=== PATIENT | female | born 1965 | race Caucasian/White ===

== ENCOUNTER 2018-10-29 14:02 | Inpatient (IN) | payer OTHER, SELFPAY ==
[2018-10-29 14:02] VITALS: BP 170/99; PULSE 91; RESP 16; TEMP 37.2; O2SAT 98; BMI 26.5
--- NOTE | 2018-10-29 14:26 | CT_ITS ---
STUDY: CT ABDOMEN AND PELVIS WITH CONTRAST REASON FOR EXAM: Female, 53 years old. Abdominal pain, diarrhea RADIATION DOSAGE (If Supplied By Facility): CTDIvol = ( 11.97 ) mGy, DLP = ( 789.98 ) mGycm TECHNIQUE: Transaxial images were obtained from the dome of the diaphragm to the symphysis pubis with oral contrast. 100 mL Omnipaque 300 was administered. Sagittal and coronal images were reconstructed. Individualized dose optimization techniques were used for this CT. COMPARISON: None. FINDINGS: There is atelectasis in the lung bases. The visualized portions of the heart are within normal limits. Mild periportal edema likely related to hydration status. There is small hepatic cysts but no solid hepatic masses. Normal gallbladder and extrahepatic biliary system. Normal spleen. Normal pancreas. Normal bilateral adrenal glands. Normal right kidney. Normal left kidney. Normal visualized stomach. Normal small intestine. There is significant (1.4 cm thickness) wall thickening involving the terminal ileum, ileocecal valve and ascending colon (with edematous submucosa) extending just beyond the hepatic flexure. Pericolonic stranding and fluid extending along the right colon and in the paracolic gutter into the hepatorenal recess and adjacent to the liver. No pneumoperitoneum. The remainder of the colon is unremarkable and nondistended. There are diverticular changes of the left colon. There is non-visualization of the appendix. There is diffuse atherosclerotic calcification of the abdominal aorta, without a demonstrated aneurysm. Normal inferior vena cava. Normal retroperitoneum. Normal urinary bladder. Normal visualized uterus. Mild amount of free fluid in the dependent portion of pelvis. Normal abdominal wall. There are diffuse degenerative changes of the visualized lumbar spine. CT/Abdomen/Pelvis WITH Contrast IMPRESSION: 1. Terminal ileum and right colon wall thickening with pericolonic stranding and mild intra-abdominal fluid. Most likely represents infectious (Yersinia, salmonella could most common in this distribution) ileocolitis. Inflammatory bowel disease, ischemic colitis and neoplasm considered less likely. Electronically Signed: Chris Pérez MD at 17:07 EST , Service support ,
--- NOTE | 2018-10-29 14:29 | ED.DCSUM_ITS ---
- ER Visit Summary Date of Service: 10/29/18 Chief Complaint: Abdominal pain, diarrhea History of Present Illness: The patient is a 53 F presenting with abdominal pain, diarrhea. Patient is a started last night. She has had several episodes of diarrhea. She has noted blood in her stool. She denies sick contacts. No recent antibiotics or recent travel. No history of bad food exposure. She has nausea with no vomiting. She denies fever. History of previous appendectomy. Physical Examination: Vitals are stable. Patient is afebrile. Alert no acute distress. HEENT exam is unremarkable. Neck is supple. Lungs are clear and equal bilaterally. Heart is regular rate and rhythm. Abdomen is soft right lower quadrant tenderness with no rebound or guarding Extremities are unremarkable. Skin is warm and dry. No focal neurologic deficit. Remainder of exam is unremarkable. Emergency Department Course and Treatment: Patient given IV fluids, Zofran, morphine. She continues to have nausea and was given Phenergan IV. CBC showed white count 12.3, hemoglobin 14.4. Chemistry unremarkable. Liver lipase are normal. Urinalysis unremarkable other than trace ketones. CT abdomen pelvis shows terminal ileum and right colon wall thickening with pericolonic stranding and mild intra-abdominal fluid. Most likely represents infectious (Yersinia, salmonella could most common in this distribution) ileocolitis. Inflammatory bowel disease, ischemic colitis and neoplasm considered less likely. Stool guaiac positive. Patient continues to have abdominal pain, nausea. Discussed with the hospitalist for admission. Disposition: Admission Impression: Ileocolitis This note was generated with [employer] dictation software. It may contain incorrect words, spelling, and punctuation that were not noted in review of the chart prior to signing ED Disposition - Plan for ED Patient: Referrals: Care Physician,No Primary [Primary Care Provider] -
[2018-10-29] MEDS: 0.9% Normal Saline 1,000 ML 1000 ML IV (14:47)
[2018-10-29] MEDS: Ondansetron 4 MG/2 ML Vial IV (14:48)
[2018-10-29 14:49] LABS: Bacteria 0 SEEN /hpf (None Seen); Mucous, Urine 0 SEEN /hpf (<or=2+); Red Blood Cells-Urine 0 SEEN /hpf (0-5)
[2018-10-29 14:53] LABS: Absolute Lymphocyte Count 1.14 X10^3/ul (0.83-4.51); Absolute Neutrophil Count 10.4 X10^3/uL (2.0-7.7); Basophil# 0.03 X10^3/uL; Basophil% 0.2 % (0-1); Eosinophil# 0.05 X10^3/uL; Eosinophils% 0.4 % (0-5); Hematocrit 41.4 % (37-47); Hemoglobin 14.4 g/dl (12.0-15.0); Lymphocyte # 1.14 X10^3/ul (4.0); Lymphocyte % 9.3 % (19-41); Mean Corp Hgb Conc 34.8 g/gl (32-36); Mean Corpuscular Hgb 33.6 pg (27.0-32.0); Mean Corpuscular Volume 96.7 fL (81-99); Mean Platelet Vol. 9.8 fl (6.2-12.0); Monocyte# 0.63 X10^3/uL; Monocyte% 5.1 % (0-10); Neutrophil # 10.43 X10^3/uL (2.7-7.7); Neutrophil % 84.9 % (47-70); Platelet Count 203 K/mm3 (150-450); RBC Distribution Width SD 44.8 fl (35.1-43.9); Red Blood Count 4.28 M/mm3 (4.2-5.4); White Blood Count 12.3 K/mm3 (4.4-11.0)
[2018-10-29 14:54] LABS: POSITIVE COUNT NO; POSITIVE DIFFERENTIAL NO; POSITIVE MORPHOLOGY NO
[2018-10-29 14:59] LABS: Color, Urine Yellow (Yellow); Glucose, Dipstick Normal (Normal); Ketone-Dipstick 50 mg/dl (Negative); Leukocyte Esterase-Dipstick Negative /ul (Negative); Nitrite-Dipstick Negative (Negative); Occult Blood-Urine Negative /ul (Negative); Protein-Dipstick Negative (Negative); Urine Bilirubin Dipstick Negative (Negative); Urine Clarity Clear (Clear); Urine Urobilinogen Normal (Normal)
[2018-10-29 15:04] LABS: Squamous Epithelial Cells - UA 0-5 SEEN /hpf (5-10); White Blood Cells 0-5 SEEN /hpf (0-5)
[2018-10-29 15:20] LABS: ALB/GLOB Ratio 0.8 RATIO (0.9-2.4); AST(SGOT) 19 U/L (15-37); Alanine Aminotransfer ALT/SGPT 12 U/L (13-56); Albumin, Serum 3.1 g/dL (3.2-5.0); Alkaline Phosphatase 64 U/L (45-117); Anion Gap 5 (5-15); BUN 9 mg/dL (7-18); BUN/Creat Ratio 11.6 RATIO (10-20); Calcium,Total 8.3 mg/dL (8.5-10.1); Chloride 112 mmol/L (98-107); Creatinine, Serum 0.77 mg/dL (0.55-1.02); EST Glomerular Filtration Rate 83 mL/min (>60); Est Glom Filt Rate - Afr Amer 100 mL/min (>60); Globulin 3.8 g/dL (2.2-4.2); Glucose 81 mg/dL (74-106); Lipase 110 U/L (73-393); Potassium 4.2 mmol/L (3.5-5.1); Protein, Total 6.9 g/dL (6.4-8.2); Sodium Level 138 mmol/L (136-145)
[2018-10-29] MEDS: proMETHazine 25 MG/ML Syringe 6.25 MG IV (16:32)
[2018-10-29 16:38] VITALS: PULSE 72; RESP 14; O2SAT 98
[2018-10-29] MEDS: Acetaminophen 500 MG Tablet 1000 MG PO (17:17)
--- NOTE | 2018-10-29 17:33 | PCM.HP.STD ---
Problem List (1) Ileocolitis Status: Acute (2) Tobacco use Status: Chronic History of Present Illness Date of Admission: 10/29/18 Chief Complaint: Abdominal pain, N/V, bloody diarrhea The patient is a 53 y/o F w/ PMHx: Tobacco use who presents to the [facility] ED on 10/29/18 with history of onset loose stools intermittently over the last 3-5 days with recent notable GI illness at her work ([employer] facility) with several staff and patient's with N/V/D who then had onset over the last 24 hours worsened abdominal cramping, RLQ worse, continued worsened more frequent diarrhea with nausea without emesis, recent poor oral intake with transition of stools to bloody diarrhea with no fevers or chills. She denied any recent abx therapy but again works at a [employer] facility with recent facility illness outbreak. Work-up in the ED included T 98.9, heart rate 91, BP 170/99, respiratory rate 16, 98% on room air, CBC with W BC 12.3, hemoglobin 14.4, platelet 203 with left shift, CMP not marked appearing, lipase 110, urinalysis unremarkable aside evidence of dehydration, stool occult blood positive, CT abdomen and pelvis with terminal ileum and right colon wall thickening with pericolonic stranding and mild intra-abdominal fluid concerning for infectious ileocolitis. The ED patient administered Tylenol, Zofran, Phenergan in addition to normal saline. Past Medical History Past Medical History (Chronic Problems): Chronic Problems Tobacco use (Chronic) Allergies codeine Allergy (Verified 10/29/18 14:05) Rash Penicillins Allergy (Verified 10/29/18 14:05) Rash Home Medications: Ambulatory Orders Medication Instructions Recorded Cay[place] 450 mg PO BID 10/29/18 Garlic 1,000 mg PO BID 10/29/18 L.acidoph,Paracasei, B.lactis 1 tab PO DAILY 10/29/18 [Probiotic] Surgical History: appendectomy Psychiatric History: No pertinent psych hx [employer] History: No pertinent [employer] history Lives: With Family - Patient notes that her son lives with her. Smoking Status: Current every day smoker - Patient smokes approximately 1 pack of cigarettes every 2-3 days. Tobacco Use: Cigarettes Alcohol: None Drugs: None - *Family History Maternal History Items: - - Patient denies any marked maternal or paternal family history including diabetes, cancer or heart disease. Paternal History Items: - - Patient denies any marked maternal or paternal family history including diabetes, cancer or heart disease. Review of Systems Constitutional: Reports: Anorexia, Malaise, Weakness, Fatigue. Denies: Chills, Fever, Weight Change HEENT: Denies: Head Aches, Sinus Congestion, Sinus Drainage Cardiovascular: Denies: Chest Pain, Palpitations Respiratory: Denies: Cough, Shortness of breath at rest, Sputum production Gastrointestinal: Reports: Abdominal Pain, Diarrhea, Nausea. Denies: Vomiting Genitourinary: Denies: Dysuria Musculoskeletal: Reports: Joint Pain. Denies: Joint Tenderness Skin: Denies: Rash, Wounds Neurological: Denies: Numbness, Tingling, Focal weakness Psychiatric: Denies: Anxiety, Depression, Homicidal Ideations, Suicidal Ideations Hematologic/ Lymphatic: Denies: Easy Bruising, Easy Bleeding VTE Information - Inpt Only VTE Present on Admission: No VTE Mechan Device Prophylaxis: SCD's VTE Pharm Prophylaxis ordered?: No Reason prophylaxis not ordered:: Medical Contraindication Patient Problems: Active and Suspected Problems Ileocolitis (Acute) Subjective: Seated upright in ED bed, fatigued appearing, garbage next to her secondary to ongoing nausea. Objective: Physical Examination: General: awake, alert, oriented x 3 and cooperative, seated upright in the ED bed, fatigued appearing, ill-appearing. Skin: normal color, turgor, no icterus, cyanosis. HEENT: AT/NC, EOMI, PERRLA, dry MM, no carotid bruits or JVD noted. Lungs: Diminished breath sounds bilaterally, greater bilateral bases, moderate effort, no rales, ronchi or wheezing. Heart: Regular rate and rhythm; no gallop, rub audible. Abdomen: soft, mild generalized discomfort but no severe pain with palpation, nondistended, hyperactive bowel sounds, no HSM. Extremities: no cyanosis, clubbing, or edema. Neurological: patient awake, alert, oriented x 3; cognitive function intact; pupils equally reactive to light and accomodation; cranial nerves II-XII grossly normal, moving all 4 extremities, no focal deficits, strength severely global decrease secondary to acute presentation. Psychiatric: affect appears fatigued, no acute evidence of depressive or anxiety feelings. - Physical Exam Vital Signs Temp Pulse Resp BP Pulse Ox 98.9 F 72 14 170/99 H 98 10/29/18 14:02 10/29/18 16:38 10/29/18 16:38 10/29/18 14:02 10/29/18 16:38 Oxygen Delivery Method Room Air Weight: 150 lb Body Mass Index (BMI) 26.5 Microbiology Past 72 Hours 10/29/18 15:40 Stool Occult Blood (BETHANIE) - Final Stool Occult Blood Positive Laboratory Tests Past 24 Hrs 10/29/18 10/29/18 10/29/18 14:45 14:45 14:45 WBC 12.3 H RBC 4.28 Hgb 14.4 Hct 41.4 MCV 96.7 MCH 33.6 H MCHC 34.8 RDW 13.0 RDW Differential 44.8 H Plt Count 203 MPV 9.8 Immature Gran % (Auto) 0.100 Neut % (Auto) 84.9 H Lymph % (Auto) 9.3 L [place] % (Auto) 5.1 Eos % (Auto) 0.4 Baso % (Auto) 0.2 Absolute Neuts (auto) 10.4 H Absolute Lymphs (auto) 1.14 Total Counted Not Reportable Sodium 138 Potassium 4.2 Chloride 112 H Carbon Dioxide 21.0 Anion Gap 5 BUN 9 Creatinine 0.77 Estim Creat Clear Calc 69.90 Est GFR (MDRD) Af Amer 100 Est GFR (MDRD) Non-Af 83 BUN/Creatinine Ratio 11.6 Glucose 81 Calcium 8.3 L Total Bilirubin 0.60 AST 19 ALT 12 L Alkaline Phosphatase 64 Total Protein 6.9 Albumin 3.1 L Globulin 3.8 Albumin/Globulin Ratio 0.8 L Lipase 110 Urine Color Yellow Urine Clarity Clear Urine pH 5.0 Ur Specific [place] 1.020 Urine Protein Negative Urine Glucose (UA) Normal Urine Ketones 50 H Urine Occult Blood Negative Urine Nitrite Negative Urine Bilirubin Negative Urine Urobilinogen Normal Ur Leukocyte Esterase Negative Urine RBC 0 SEEN Urine WBC 0-5 SEEN Ur Squamous Epith Cells 0-5 SEEN Urine Bacteria 0 SEEN Urine Mucus 0 SEEN Assessment/Plan All Active Problems Ileocolitis (Acute) The patient is a 53 y/o F w/ PMHx: Tobacco use who presents to the [facility] ED on 10/29/18 with history of onset loose stools intermittently over the last 3-5 days with recent notable GI illness at her work with several staff and patient's with N/V/D who then had onset over the last 24 hours worsened abdominal cramping, continued worsened more frequent diarrhea with nausea without emesis, recent poor oral intake with transition of stools to bloody diarrhea with no fevers or chills. (1) N/V/D w/ Ileocolitis, concerning for Infectious Etiology: Work-up in the ED included T 98.9, heart rate 91, BP 170/99, respiratory rate 16, 98% on room air, CBC with W BC 12.3, hemoglobin 14.4, platelet 203 with left shift, CMP not marked appearing, lipase 110, urinalysis unremarkable aside evidence of dehydration, stool occult blood positive, CT abdomen and pelvis with terminal ileum and right colon wall thickening with pericolonic stranding and mild intra-abdominal fluid concerning for infectious ileocolitis. Will admit MS, will continue aggressive hydration, given SNF outbreak requested c diff, stool cx, and as noted CT scan concerning for given pattern Yersinia versus Salmonella therefore no antibiotics initiated ending cultures given clinical stability. NPO status in interim. Anti-emetics, pain regimen PRN. (2) Tobacco Abuse: Encouraged cessation, inpatient consultation per RT, NR if desired. (3) GERD: IV PPI. (4) DVT Prophylaxis: SCDs, defer chemoprophylaxis given presentation with bloody diarrhea as noted. Code Visit Inpatient E&M: 58082 Init Hosp L3
--- NOTE | 2018-10-29 17:38 | HP.PCM_ITS ---
Problem List (1) Ileocolitis Status: Acute (2) Tobacco use Status: Chronic History of Present Illness Date of Admission: 10/29/18 Chief Complaint: Abdominal pain, N/V, bloody diarrhea The patient is a 53 y/o F w/ PMHx: Tobacco use who presents to the [facility] ED on 10/29/18 with history of onset loose stools intermittently over the last 3-5 days with recent notable GI illness at her work ([facility] facility) with several staff and patient's with N/V/D who then had onset over the last 24 hours worsened abdominal cramping, RLQ worse, continued worsened more frequent diarrhea with nausea without emesis, recent poor oral intake with transition of stools to bloody diarrhea with no fevers or chills. 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 Work-up in the ED included T 98.9, heart rate 91, BP 170/99, respiratory rate 16, 98% on room air, CBC with W BC 12.3, hemoglobin 14.4, platelet 203 with left shift, CMP not marked appearing, lipase 110, urinalysis unremarkable aside evidence of dehydration, stool occult blood positive, CT abdomen and pelvis with terminal ileum and right colon wall thickening with pericolonic stranding and mild intra-abdominal fluid concerning for infectious ileocolitis. The ED patient administered Tylenol, Zofran, Phenergan in addition to normal saline. 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 Smoking Status: Current every day smoker - Patient smokes approximately 1 pack of cigarettes every 2-3 days. Tobacco Use: Cigarettes Alcohol: None Drugs: None - *Family History Maternal History Items: - - Patient denies any marked maternal or paternal family history including diabetes, cancer or heart disease. Paternal History Items: - - Patient denies any marked maternal or paternal family history including diabetes, cancer or heart disease. Review of Systems Constitutional: Reports: Anorexia, Malaise, Weakness, Fatigue. Denies: Chills, Fever, Weight Change HEENT: Denies: Head Aches, Sinus Congestion, Sinus Drainage Cardiovascular: Denies: Chest Pain, Palpitations Respiratory: Denies: Cough, Shortness of breath at rest, Sputum production Gastrointestinal: Reports: Abdominal Pain, Diarrhea, Nausea. Denies: Vomiting Genitourinary: Denies: Dysuria Musculoskeletal: Reports: Joint Pain. Denies: Joint Tenderness Skin: Denies: Rash, Wounds Neurological: Denies: Numbness, Tingling, Focal weakness Psychiatric: Denies: Anxiety, Depression, Homicidal Ideations, Suicidal Ideations Hematologic/ Lymphatic: Denies: Easy Bruising, Easy Bleeding VTE Information - Inpt Only VTE Present on Admission: No VTE Mechan Device Prophylaxis: SCD's VTE Pharm Prophylaxis ordered?: No Reason prophylaxis not ordered:: Medical Contraindication Patient Problems: Active and Suspected Problems Ileocolitis (Acute) Subjective: Seated upright in ED bed, fatigued appearing, garbage next to her secondary to ongoing nausea. Objective: Physical Examination: General: awake, alert, oriented x 3 and cooperative, seated upright in the ED bed, fatigued appearing, ill-appearing. Skin: normal color, turgor, no icterus, cyanosis. HEENT: AT/NC, EOMI, PERRLA, dry MM, no carotid bruits or JVD noted. Lungs: Diminished breath sounds bilaterally, greater bilateral bases, moderate effort, no rales, ronchi or wheezing. Heart: Regular rate and rhythm; no gallop, rub audible. Abdomen: soft, mild generalized discomfort but no severe pain with palpation, nondistended, hyperactive bowel sounds, no HSM. Extremities: no cyanosis, clubbing, or edema. Neurological: patient awake, alert, oriented x 3; cognitive function intact; pupils equally reactive to light and accomodation; cranial nerves II-XII grossly normal, moving all 4 extremities, no focal deficits, strength severely global decrease secondary to acute presentation. Psychiatric: affect appears fatigued, no acute evidence of depressive or anxiety feelings. - Physical Exam Vital Signs Temp Pulse Resp BP Pulse Ox 98.9 F 72 14 170/99 H 98 10/29/18 14:02 10/29/18 16:38 10/29/18 16:38 10/29/18 14:02 10/29/18 16:38 Oxygen Delivery Method Room Air Weight: 150 lb Body Mass Index (BMI) 26.5 Microbiology Past 72 Hours 10/29/18 15:40 Stool Occult Blood (BETHANIE) - Final Stool Occult Blood Positive Laboratory Tests Past 24 Hrs 10/29/18 10/29/18 10/29/18 14:45 14:45 14:45 WBC 12.3 H RBC 4.28 Hgb 14.4 Hct 41.4 MCV 96.7 MCH 33.6 H MCHC 34.8 RDW 13.0 RDW Differential 44.8 H Plt Count 203 MPV 9.8 Immature Gran % (Auto) 0.100 Neut % (Auto) 84.9 H Lymph % (Auto) 9.3 L [place] % (Auto) 5.1 Eos % (Auto) 0.4 Baso % (Auto) 0.2 Absolute Neuts (auto) 10.4 H Absolute Lymphs (auto) 1.14 Total Counted Not Reportable Sodium 138 Potassium 4.2 Chloride 112 H Carbon Dioxide 21.0 Anion Gap 5 BUN 9 Creatinine 0.77 Estim Creat Clear Calc 69.90 Est GFR (MDRD) Af Amer 100 Est GFR (MDRD) Non-Af 83 BUN/Creatinine Ratio 11.6 Glucose 81 Calcium 8.3 L Total Bilirubin 0.60 AST 19 ALT 12 L Alkaline Phosphatase 64 Total Protein 6.9 Albumin 3.1 L Globulin 3.8 Albumin/Globulin Ratio 0.8 L Lipase 110 Urine Color Yellow Urine Clarity Clear Urine pH 5.0 Ur Specific [place] 1.020 Urine Protein Negative Urine Glucose (UA) Normal Urine Ketones 50 H Urine Occult Blood Negative Urine Nitrite Negative Urine Bilirubin Negative Urine Urobilinogen Normal Ur Leukocyte Esterase Negative Urine RBC 0 SEEN Urine WBC 0-5 SEEN Ur Squamous Epith Cells 0-5 SEEN Urine Bacteria 0 SEEN Urine Mucus 0 SEEN Assessment/Plan All Active Problems Ileocolitis (Acute) The patient is a 53 y/o F w/ PMHx: Tobacco use who presents to the [facility] ED on 10/29/18 with history of onset loose stools intermittently over the last 3-5 days with recent notable GI illness at her work with several staff and patient's with N/V/D who then had onset over the last 24 hours worsened abdominal cramping, continued worsened more frequent diarrhea with nausea without emesis, recent poor oral intake with transition of stools to bloody diarrhea with no fevers or chills. (1) N/V/D w/ Ileocolitis, concerning for Infectious Etiology: Work-up in the ED included T 98.9, heart rate 91, BP 170/99, respiratory rate 16, 98% on room air, CBC with W BC 12.3, hemoglobin 14.4, platelet 203 with left shift, CMP not marked appearing, lipase 110, urinalysis unremarkable aside evidence of dehydration, stool occult blood positive, CT abdomen and pelvis with terminal ileum and right colon wall thickening with pericolonic stranding and mild intra- abdominal fluid concerning for infectious ileocolitis. Will admit MS, will continue aggressive hydration, given SNF outbreak requested c diff, stool cx, and as noted CT scan concerning for given pattern Yersinia versus Salmonella therefore no antibiotics initiated ending cultures given clinical stability. NPO status in interim. Anti-emetics, pain regimen PRN. (2) Tobacco Abuse: Encouraged cessation, inpatient consultation per RT, NR if desired. (3) GERD: IV PPI. (4) DVT Prophylaxis: SCDs, defer chemoprophylaxis given presentation with bloody diarrhea as noted. Code Visit Inpatient E&M: 95610 Init Hosp L3
[2018-10-29] MEDS: Morphine 4 MG/ML Syringe IV (17:48)
[2018-10-29 18:30] VITALS: BMI 23.7
[2018-10-29] MEDS: 0.9% Normal Saline 1,000 ML 150 ML IV (18:45)
[2018-10-29 18:46] VITALS: BP 147/84; PULSE 65; RESP 16; TEMP 37; O2SAT 99
[2018-10-29 20:29] VITALS: BP 148/89; PULSE 94; RESP 16; TEMP 37.3; O2SAT 97
[2018-10-29] MEDS: Dicyclomine 10 MG Capsule 20 MG PO (21:17)
[2018-10-29] MEDS: oxyCODONE 5 MG Tablet PO (21:17)
[2018-10-30] MEDS: 0.9% Normal Saline 1,000 ML 150 ML IV ×4 (01:42→21:00)
[2018-10-30] MEDS: oxyCODONE 5 MG Tablet PO ×4 (01:42→17:42)
[2018-10-30 01:43] VITALS: BP 133/73; PULSE 69; RESP 16; TEMP 36.8; O2SAT 95
[2018-10-30 05:52] LABS: Absolute Neutrophil Count 6.9 X10^3/uL (2.0-7.7); Basophil# 0.02 X10^3/uL; Basophil% 0.2 % (0-1); Eosinophil# 0.13 X10^3/uL; Eosinophils% 1.4 % (0-5); Hematocrit 37.4 % (37-47); Hemoglobin 12.4 g/dl (12.0-15.0); Lymphocyte % 15.6 % (19-41); Mean Corp Hgb Conc 33.2 g/gl (32-36); Mean Corpuscular Hgb 32.4 pg (27.0-32.0); Mean Corpuscular Volume 97.7 fL (81-99); Mean Platelet Vol. 9.8 fl (6.2-12.0); Monocyte# 0.52 X10^3/uL; Monocyte% 5.8 % (0-10); Neutrophil % 76.8 % (47-70); Platelet Count 196 K/mm3 (150-450); RBC Distribution Width SD 45.4 fl (35.1-43.9); Red Blood Count 3.83 M/mm3 (4.2-5.4)
[2018-10-30 06:11] LABS: Anion Gap 9 (5-15); BUN 5 mg/dL (7-18); BUN/Creat Ratio 7.3 RATIO (10-20); Calcium,Total 7.4 mg/dL (8.5-10.1); Chloride 113 mmol/L (98-107); Creatinine, Serum 0.68 mg/dL (0.55-1.02); EST Glomerular Filtration Rate 95 mL/min (>60); Est Glom Filt Rate - Afr Amer 115 mL/min (>60); Estimated Creatinine Clearance 79.15 ml/min; Glucose 74 mg/dL (74-106); Potassium 3.6 mmol/L (3.5-5.1); Sodium Level 144 mmol/L (136-145)
[2018-10-30] MEDS: Dicyclomine 10 MG Capsule 20 MG PO ×2 (06:21→10:26)
[2018-10-30 06:35] LABS: POSITIVE COUNT NO; POSITIVE DIFFERENTIAL NO; POSITIVE MORPHOLOGY NO
[2018-10-30 07:45] VITALS: O2SAT 95
[2018-10-30 07:49] VITALS: BP 133/71; PULSE 72; RESP 18; TEMP 36.9; O2SAT 96
--- NOTE | 2018-10-30 08:09 | PCM.PROGNOTE ---
Patient Problems: Active and Suspected Problems Ileocolitis (Acute) Subjective: The patient is a 53-year-old female with a past medical history of tobacco dependence who presented to the emergency department at [facility] on 10/29/2018 complaining of abdominal pain, nausea/vomiting and bloody diarrhea. 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 She denied any history of inflammatory bowel disease. Vital signs of presentation to the emergency department were temperature 98.9, pulse rate 91, blood pressure 170/99, respiratory rate 16 and she was 98% saturated on room air. White blood cell count was 12.3 with 85% neutrophils. Hemoglobin was 14.4 and platelets were 203,000. BMP was unremarkable. LFTs were unremarkable. UA was unremarkable. Stool was Hemoccult positive. CT scan of the abdomen and pelvis showed terminal ileum and right colon wall thickening with pericolonic stranding and mild intra-abdominal fluid. She was admitted to the hospital with the diagnosis of ileocolitis. She was started on IV fluids and made n.p.o. Enteric pathogen panel, C. difficile and fecal leukocytes were ordered. All events of the past 24 hours of been reviewed. Afebrile since admission. Vital signs are stable. Has never been tachycardic. 98-99% saturated on room air. Fluid balance since admission is +671. Lab: White blood cell count today is 9.0 with 77% neutrophils. Hemoglobin and platelets remain within normal limits. Potassium is 3.6 and the BUN is 5 with a creatinine of 0.68. 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 Objective: PHYSICAL EXAM: GENERAL: alert, oriented X 3, Cooperative, looks ill and tired ORAL: moist mucosa, no mucosal lesions NECK: No JVD, supple, trachea midline LUNGS: CTA, symmetric chest expansion, diminished breath sounds, no rales, no rhonchi, no wheezes HEART: RRR, Normal S1 and S2, no rub, no gallop ABDOMEN: soft, nondistended, mildly hyperactive bowel sounds, generalized discomfort with palpation, worst in the right lower quadrant EXTREMITIES: no edema, no cyanosis, no calf tenderness SKIN: No rashes, no breakdown NEUROLOGIC: no focal neurologic deficits PSYCH: appropriate, normal affect, pleasant - Physical Exam Vital Signs Temp Pulse Resp BP Pulse Ox 98.4 F 72 18 133/71 H 96 10/30/18 07:49 10/30/18 07:49 10/30/18 07:49 10/30/18 07:49 10/30/18 07:49 Oxygen Delivery Method Room Air Weight: 134 lb Body Mass Index (BMI) 23.7 Intake and Output for Last 24 Hours 10/28/18 10/29/18 10/30/18 23:59 23:59 23:59 Intake Total 839 / 839 1026 / 1026 Output Total 651 / 651 355 / 355 Balance 188 / 188 671 / 671 Microbiology Past 72 Hours 10/29/18 15:40 Stool Occult Blood (BETHANIE) - Final Stool Occult Blood Positive Laboratory Tests Past 24 Hrs 10/29/18 10/29/18 10/29/18 14:45 14:45 14:45 WBC 12.3 H RBC 4.28 Hgb 14.4 Hct 41.4 MCV 96.7 MCH 33.6 H MCHC 34.8 RDW 13.0 RDW Differential 44.8 H Plt Count 203 MPV 9.8 Immature Gran % (Auto) 0.100 Neut % (Auto) 84.9 H Lymph % (Auto) 9.3 L [place] % (Auto) 5.1 Eos % (Auto) 0.4 Baso % (Auto) 0.2 Absolute Neuts (auto) 10.4 H Absolute Lymphs (auto) 1.14 Total Counted Not Reportable Sodium 138 Potassium 4.2 Chloride 112 H Carbon Dioxide 21.0 Anion Gap 5 BUN 9 Creatinine 0.77 Estim Creat Clear Calc 69.90 Est GFR (MDRD) Af Amer 100 Est GFR (MDRD) Non-Af 83 BUN/Creatinine Ratio 11.6 Glucose 81 Calcium 8.3 L Total Bilirubin 0.60 AST 19 ALT 12 L Alkaline Phosphatase 64 Total Protein 6.9 Albumin 3.1 L Globulin 3.8 Albumin/Globulin Ratio 0.8 L Lipase 110 Urine Color Yellow Urine Clarity Clear Urine pH 5.0 Ur Specific [place] 1.020 Urine Protein Negative Urine Glucose (UA) Normal Urine Ketones 50 H Urine Occult Blood Negative Urine Nitrite Negative Urine Bilirubin Negative Urine Urobilinogen Normal Ur Leukocyte Esterase Negative Urine RBC 0 SEEN Urine WBC 0-5 SEEN Ur Squamous Epith Cells 0-5 SEEN Urine Bacteria 0 SEEN Urine Mucus 0 SEEN 10/30/18 10/30/18 04:58 04:58 WBC 9.0 RBC 3.83 L Hgb 12.4 Hct 37.4 MCV 97.7 MCH 32.4 H MCHC 33.2 RDW 13.0 RDW Differential 45.4 H Plt Count 196 MPV 9.8 Immature Gran % (Auto) 0.200 Neut % (Auto) 76.8 H Lymph % (Auto) 15.6 L [place] % (Auto) 5.8 Eos % (Auto) 1.4 Baso % (Auto) 0.2 Absolute Neuts (auto) 6.9 Absolute Lymphs (auto) 1.40 Total Counted Not Reportable Sodium 144 Potassium 3.6 Chloride 113 H Carbon Dioxide 22.0 Anion Gap 9 BUN 5 L Creatinine 0.68 Estim Creat Clear Calc 79.15 Est GFR (MDRD) Af Amer 115 Est GFR (MDRD) Non-Af 95 BUN/Creatinine Ratio 7.3 L Glucose 74 Calcium 7.4 L Total Bilirubin AST ALT Alkaline Phosphatase Total Protein Albumin Globulin Albumin/Globulin Ratio Lipase Urine Color Urine Clarity Urine pH Ur Specific [place] Urine Protein Urine Glucose (UA) Urine Ketones Urine Occult Blood Urine Nitrite Urine Bilirubin Urine Urobilinogen Ur Leukocyte Esterase Urine RBC Urine WBC Ur Squamous Epith Cells Urine Bacteria Urine Mucus Medical Necessity - Tobacco Use Smoking Status: Current every day smoker - Patient smokes approximately 1 pack of cigarettes every 2-3 days. Tobacco Use: Cigarettes Assessment/Plan All Active Problems Ileocolitis (Acute) Impressions 1. 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 2. Tobacco dependence 3. GERD 4. Dehydration Clear liquid diet Start vancomycin 125 mg p.o. every 6 hours and continue for 10 days I notified Janeen at [facility] that Mildred has C. DIFF enterocolitis and that anyone with D/N/V should be tested and isolated. Left a message for our infection traffic control specialist, Carlin Jacob, to connect with Alex Portillo who is the director at [facility] Code Visit Inpatient E&M: [id number] Subs Hosp L2
--- NOTE | 2018-10-30 08:23 | PN_ITS ---
Patient Problems: Active and Suspected Problems Ileocolitis (Acute) Subjective: The patient is a 53-year-old female with a past medical history of tobacco dependence who presented to the emergency department at [facility] on 10/29/2018 complaining of abdominal pain, nausea/vomiting and bloody diarrhea. 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 She denied any history of inflammatory bowel disease. Vital signs of presentation to the emergency department were temperature 98.9, pulse rate 91, blood pressure 170/99, respiratory rate 16 and she was 98% saturated on room air. White blood cell count was 12.3 with 85% neutrophils. Hemoglobin was 14.4 and platelets were 203,000. BMP was unremarkable. LFTs were unremarkable. UA was unremarkable. Stool was Hemoccult positive. CT scan of the abdomen and pelvis showed terminal ileum and right colon wall thickening with pericolonic stranding and mild intra- abdominal fluid. She was admitted to the hospital with the diagnosis of ileocolitis. She was started on IV fluids and made n.p.o. Enteric pathogen panel, C. difficile and fecal leukocytes were ordered. All events of the past 24 hours of been reviewed. Afebrile since admission. Vital signs are stable. Has never been tachycardic. 98-99% saturated on room air. Fluid balance since admission is +671. Lab: White blood cell count today is 9.0 with 77% neutrophils. Hemoglobin and platelets remain within normal limits. Potassium is 3.6 and the BUN is 5 with a creatinine of 0.68. 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 Objective: PHYSICAL EXAM: GENERAL: alert, oriented X 3, Cooperative, looks ill and tired ORAL: moist mucosa, no mucosal lesions NECK: No JVD, supple, trachea midline LUNGS: CTA, symmetric chest expansion, diminished breath sounds, no rales, no rhonchi, no wheezes HEART: RRR, Normal S1 and S2, no rub, no gallop ABDOMEN: soft, nondistended, mildly hyperactive bowel sounds, generalized discomfort with palpation, worst in the right lower quadrant EXTREMITIES: no edema, no cyanosis, no calf tenderness SKIN: No rashes, no breakdown NEUROLOGIC: no focal neurologic deficits PSYCH: appropriate, normal affect, pleasant - Physical Exam Vital Signs Temp Pulse Resp BP Pulse Ox 98.4 F 72 18 133/71 H 96 10/30/18 07:49 10/30/18 07:49 10/30/18 07:49 10/30/18 07:49 10/30/18 07:49 Oxygen Delivery Method Room Air Weight: 134 lb Body Mass Index (BMI) 23.7 Intake and Output for Last 24 Hours 10/28/18 10/29/18 10/30/18 23:59 23:59 23:59 Intake Total 839 / 839 1026 / 1026 Output Total 651 / 651 355 / 355 Balance 188 / 188 671 / 671 Microbiology Past 72 Hours 10/29/18 15:40 Stool Occult Blood (BETHANIE) - Final Stool Occult Blood Positive Laboratory Tests Past 24 Hrs 10/29/18 10/29/18 10/29/18 14:45 14:45 14:45 WBC 12.3 H RBC 4.28 Hgb 14.4 Hct 41.4 MCV 96.7 MCH 33.6 H MCHC 34.8 RDW 13.0 RDW Differential 44.8 H Plt Count 203 MPV 9.8 Immature Gran % (Auto) 0.100 Neut % (Auto) 84.9 H Lymph % (Auto) 9.3 L [place] % (Auto) 5.1 Eos % (Auto) 0.4 Baso % (Auto) 0.2 Absolute Neuts (auto) 10.4 H Absolute Lymphs (auto) 1.14 Total Counted Not Reportable Sodium 138 Potassium 4.2 Chloride 112 H Carbon Dioxide 21.0 Anion Gap 5 BUN 9 Creatinine 0.77 Estim Creat Clear Calc 69.90 Est GFR (MDRD) Af Amer 100 Est GFR (MDRD) Non-Af 83 BUN/Creatinine Ratio 11.6 Glucose 81 Calcium 8.3 L Total Bilirubin 0.60 AST 19 ALT 12 L Alkaline Phosphatase 64 Total Protein 6.9 Albumin 3.1 L Globulin 3.8 Albumin/Globulin Ratio 0.8 L Lipase 110 Urine Color Yellow Urine Clarity Clear Urine pH 5.0 Ur Specific [place] 1.020 Urine Protein Negative Urine Glucose (UA) Normal Urine Ketones 50 H Urine Occult Blood Negative Urine Nitrite Negative Urine Bilirubin Negative Urine Urobilinogen Normal Ur Leukocyte Esterase Negative Urine RBC 0 SEEN Urine WBC 0-5 SEEN Ur Squamous Epith Cells 0-5 SEEN Urine Bacteria 0 SEEN Urine Mucus 0 SEEN 10/30/18 10/30/18 04:58 04:58 WBC 9.0 RBC 3.83 L Hgb 12.4 Hct 37.4 MCV 97.7 MCH 32.4 H MCHC 33.2 RDW 13.0 RDW Differential 45.4 H Plt Count 196 MPV 9.8 Immature Gran % (Auto) 0.200 Neut % (Auto) 76.8 H Lymph % (Auto) 15.6 L [place] % (Auto) 5.8 Eos % (Auto) 1.4 Baso % (Auto) 0.2 Absolute Neuts (auto) 6.9 Absolute Lymphs (auto) 1.40 Total Counted Not Reportable Sodium 144 Potassium 3.6 Chloride 113 H Carbon Dioxide 22.0 Anion Gap 9 BUN 5 L Creatinine 0.68 Estim Creat Clear Calc 79.15 Est GFR (MDRD) Af Amer 115 Est GFR (MDRD) Non-Af 95 BUN/Creatinine Ratio 7.3 L Glucose 74 Calcium 7.4 L Total Bilirubin AST ALT Alkaline Phosphatase Total Protein Albumin Globulin Albumin/Globulin Ratio Lipase Urine Color Urine Clarity Urine pH Ur Specific [place] Urine Protein Urine Glucose (UA) Urine Ketones Urine Occult Blood Urine Nitrite Urine Bilirubin Urine Urobilinogen Ur Leukocyte Esterase Urine RBC Urine WBC Ur Squamous Epith Cells Urine Bacteria Urine Mucus Medical Necessity - Tobacco Use Smoking Status: Current every day smoker - Patient smokes approximately 1 pack of cigarettes every 2-3 days. Tobacco Use: Cigarettes Assessment/Plan All Active Problems Ileocolitis (Acute) Impressions 1. 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 2. Tobacco dependence 3. GERD 4. Dehydration Clear liquid diet Start vancomycin 125 mg p.o. every 6 hours and continue for 10 days I notified Janeen at [facility] that Mildred has C. DIFF enterocolitis and that anyone with D/N/V should be tested and isolated. Left a message for our infection internal control specialist, Carlin Jacob, to connect with Alex Portillo who is the director at [facility] Code Visit Inpatient E&M: [id number] Subs Hosp L2
[2018-10-30 14:00] VITALS: BP 136/74; PULSE 71; RESP 18; TEMP 36.8; O2SAT 95
[2018-10-30 20:00] VITALS: BP 127/66; PULSE 73; RESP 16; TEMP 36.7; O2SAT 97
[2018-10-30] MEDS: Morphine 2 MG/ML Syringe IV (21:00)
[2018-10-31] MEDS: oxyCODONE 5 MG Tablet PO ×5 (00:18→20:37)
[2018-10-31 02:10] VITALS: BP 137/72; PULSE 71; RESP 16; TEMP 36.7; O2SAT 97
[2018-10-31] MEDS: 0.9% Normal Saline 1,000 ML 150 ML IV ×3 (03:58→19:08)
[2018-10-31 07:47] VITALS: BP 152/82; PULSE 82; RESP 16; TEMP 37; O2SAT 96
[2018-10-31 08:17] VITALS: O2SAT 97
--- NOTE | 2018-10-31 10:46 | PCM.PN.HOSP ---
Patient Problems: Active and Suspected Problems Ileocolitis (Acute) Subjective: Feels better, and diarrhea has improved significantly though she still feels a little lightheaded and dizzy on occasion Vitals/I&O's: Vital Signs Temp Pulse Resp BP Pulse Ox 98.6 F 82 16 152/82 H 97 10/31/18 07:47 10/31/18 07:47 10/31/18 07:47 10/31/18 07:47 10/31/18 08:17 Oxygen Delivery Method Room Air Weight: 134 lb Body Mass Index (BMI) 23.7 Intake and Output for Last 24 Hours 10/29/18 10/30/18 10/31/18 23:59 23:59 23:59 Intake Total 839 / 839 3364 / 3364 2754 / 2754 Output Total 651 / 651 1355 / 1355 1200 / 1200 Balance 188 / 188 2008 1554 / 1554 General: Alert, Oriented x3, Cooperative, No apparent distress HEENT: Atraumatic, PERRLA, EOMI, Normocephalic Oral: Moist Mucosa Neck: Supple, No JVD, Trachea Midline Lungs: Clear to auscultation, Normal air movement, No rhonchi, No wheeze, No rales Cardiovascular: Regular rate, Regular Rhythm, Normal S1, Normal S2, No murmurs Abdomen: Soft, Non Tender, Non-Distended, No Hepato-splenomegaly Extremities: No edema, Capillary Refill Less than 3 Seconds Skin: No rashes, No breakdown Neurological: Neuro grossly intact, Sensory exam intact to light touch and pain Psych/Mental Status: Normal Affect, Appropriate Microbiology Past 72 Hours 10/29/18 07:50 Stool Enteric Bacteriology - Final 10/30/18 07:50 Stool C. difficile DNA Amplification - Final Toxigenic C. difficile DNA 10/29/18 07:50 Stool Stool Lactoferrin - Final 10/29/18 15:40 Stool Stool Occult Blood (BETHANIE) - Final Occult Blood Positive Current Medications Acetaminophen (Tylenol) 650 mg PO Q6H PRN PRN PRN Reason: Non-cardiac pain (mod-severe) Al Hydroxide/Mg Hydroxide (Mylanta Ii) 30 ml PO Q6H PRN PRN PRN Reason: Gastric burning Hydralazine HCl (Apresoline Iv) 10 mg IV Q4H PRN PRN PRN Reason: SBP > 160 Sodium Chloride () 1,000 mls @ 150 mls/hr IV .Q6H40M [facility] Last Admin: 10/31/18 03:58 Dose: 150 mls/hr Pantoprazole Sodium 40 mg/ (Sodium Chloride) 110 mls @ 330 mls/hr IV Q12 [facility] Last Admin: 10/31/18 07:49 Dose: 330 mls/hr Magnesium Hydroxide (Milk Of Magnesia) 30 ml PO DAILY PRN PRN PRN Reason: Constipation Morphine Sulfate () 1 - 2 mg IV Q4H PRN PRN PRN Reason: PAIN Last Admin: 10/30/18 21:00 Dose: 2 mg Ondansetron HCl (Zofran) 4 mg IV Q8H PRN PRN PRN Reason: NAUSEA/VOMITING Oxycodone HCl (Oxyir) 5 - 10 mg PO Q4H PRN PRN PRN Reason: SEVERE PAIN (6-10/10) Last Admin: 10/31/18 06:11 Dose: 10 mg Sodium Chloride () 5 - 15 ml IV UD PRN PRN Reason: SALINE FLUSH Vancomycin HCl () 125 mg PO Q6 [facility] Last Admin: 10/31/18 06:11 Dose: 125 mg Medical Necessity - Tobacco Use Smoking Status: Current every day smoker - Patient smokes approximately 1 pack of cigarettes every 2-3 days. Tobacco Use: Cigarettes Assessment/Plan All Active Problems Ileocolitis (Acute) 1. C. difficile colitis -Diarrhea has improved -Tinea with p.o. vancomycin every 6 for 10-14 days -Plan for DC tomorrow -Continue with IV fluids and can advance diet 2. GERD -Stable -Continue with PPI but she does not take anything at home DVT: SCDs Code Visit Inpatient E&M: [id number] Subs Hosp L2
--- NOTE | 2018-10-31 10:51 | PN_ITS ---
Patient Problems: Active and Suspected Problems Ileocolitis (Acute) Subjective: Feels better, and diarrhea has improved significantly though she still feels a little lightheaded and dizzy on occasion Vitals/I&O's: Vital Signs Temp Pulse Resp BP Pulse Ox 98.6 F 82 16 152/82 H 97 10/31/18 07:47 10/31/18 07:47 10/31/18 07:47 10/31/18 07:47 10/31/18 08:17 Oxygen Delivery Method Room Air Weight: 134 lb Body Mass Index (BMI) 23.7 Intake and Output for Last 24 Hours 10/29/18 10/30/18 10/31/18 23:59 23:59 23:59 Intake Total 839 / 839 3364 / 3364 2754 / 2754 Output Total 651 / 651 1355 / 1355 1200 / 1200 Balance 188 / 188 2008 1554 / 1554 General: Alert, Oriented x3, Cooperative, No apparent distress HEENT: Atraumatic, PERRLA, EOMI, Normocephalic Oral: Moist Mucosa Neck: Supple, No JVD, Trachea Midline Lungs: Clear to auscultation, Normal air movement, No rhonchi, No wheeze, No rales Cardiovascular: Regular rate, Regular Rhythm, Normal S1, Normal S2, No murmurs Abdomen: Soft, Non Tender, Non-Distended, No Hepato-splenomegaly Extremities: No edema, Capillary Refill Less than 3 Seconds Skin: No rashes, No breakdown Neurological: Neuro grossly intact, Sensory exam intact to light touch and pain Psych/Mental Status: Normal Affect, Appropriate Microbiology Past 72 Hours 10/29/18 07:50 Stool Enteric Bacteriology - Final 10/30/18 07:50 Stool C. difficile DNA Amplification - Final Toxigenic C. difficile DNA 10/29/18 07:50 Stool Stool Lactoferrin - Final 10/29/18 15:40 Stool Stool Occult Blood (BETHANIE) - Final Occult Blood Positive Current Medications Acetaminophen (Tylenol) 650 mg PO Q6H PRN PRN PRN Reason: Non-cardiac pain (mod-severe) Al Hydroxide/Mg Hydroxide (Mylanta Ii) 30 ml PO Q6H PRN PRN PRN Reason: Gastric burning Hydralazine HCl (Apresoline Iv) 10 mg IV Q4H PRN PRN PRN Reason: SBP > 160 Sodium Chloride () 1,000 mls @ 150 mls/hr IV .Q6H40M [facility] Last Admin: 10/31/18 03:58 Dose: 150 mls/hr Pantoprazole Sodium 40 mg/ (Sodium Chloride) 110 mls @ 330 mls/hr IV Q12 [facility] Last Admin: 10/31/18 07:49 Dose: 330 mls/hr Magnesium Hydroxide (Milk Of Magnesia) 30 ml PO DAILY PRN PRN PRN Reason: Constipation Morphine Sulfate () 1 - 2 mg IV Q4H PRN PRN PRN Reason: PAIN Last Admin: 10/30/18 21:00 Dose: 2 mg Ondansetron HCl (Zofran) 4 mg IV Q8H PRN PRN PRN Reason: NAUSEA/VOMITING Oxycodone HCl (Oxyir) 5 - 10 mg PO Q4H PRN PRN PRN Reason: SEVERE PAIN (6-10/10) Last Admin: 10/31/18 06:11 Dose: 10 mg Sodium Chloride () 5 - 15 ml IV UD PRN PRN Reason: SALINE FLUSH Vancomycin HCl () 125 mg PO Q6 [facility] Last Admin: 10/31/18 06:11 Dose: 125 mg Medical Necessity - Tobacco Use Smoking Status: Current every day smoker - Patient smokes approximately 1 pack of cigarettes every 2-3 days. Tobacco Use: Cigarettes Assessment/Plan All Active Problems Ileocolitis (Acute) 1. C. difficile colitis -Diarrhea has improved -Tinea with p.o. vancomycin every 6 for 10-14 days -Plan for DC tomorrow -Continue with IV fluids and can advance diet 2. GERD -Stable -Continue with PPI but she does not take anything at home DVT: SCDs Code Visit Inpatient E&M: [id number] Subs Hosp L2
--- NOTE | 2018-10-31 13:57 | CASEMGMT ---
RN CM Assessment Presentation: ABD Pain, C-Diff Introduced role of RN CM to patient. Patient is alert, oriented and able to participate in RN CM Assessment. Care providers, pharmacy, and demographics verified. PCP: No PCP Preferred Pharmacy: [facility] [employer]. Updated in chart Prescription Benefit: yes LNOK: , Ray Diana Living Arrangements/DME: Lives independently, denies use of an DME or HHC. DC PLAN: Anticipate home on discharge.
[2018-10-31 14:00] VITALS: BP 175/92; PULSE 78; RESP 16; TEMP 37.2; O2SAT 95
[2018-10-31] MEDS: Dicyclomine 10 MG Capsule PO (19:08)
[2018-10-31 20:00] VITALS: BP 147/88; PULSE 73; RESP 16; TEMP 36.9; O2SAT 94
[2018-11-01] MEDS: oxyCODONE 5 MG Tablet PO ×2 (00:48→06:38)
[2018-11-01] MEDS: 0.9% Normal Saline 1,000 ML 150 ML IV (06:31)
[2018-11-01] MEDS: Dicyclomine 10 MG Capsule PO (06:32)
[2018-11-01 07:58] VITALS: O2SAT 93
--- NOTE | 2018-11-01 09:49 | PCM.DC ---
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 difficile colitis Call your doctor if you observe: Fever of 101 or Higher, Shortness of breath, Dizziness, Fainting spells, Swelling in the ankles, Chest pain, Increased palpitations (irregular heartbeat) Allergies/Adverse Reactions: Allergies codeine Allergy (Verified 10/29/18 14:05) Rash Penicillins Allergy (Verified 10/29/18 14:05) Rash Medications to take at Discharge [place] 450 mg PO BID 10/29/18 Garlic 1,000 mg PO BID 10/29/18 L.acidoph,Paracasei, B.lactis [Probiotic] 1 tab PO DAILY 10/29/18 Vancomcyin 125mg/5mL PO Liquid 125 mg PO Q6 11 Days #44 po.syringe 11/01/18 The following prescriptions were given: Vancomcyin 125mg/5mL PO Liquid 125 mg PO Q6 11 Days #44 po.syringe Primary Care Physician: Care Physician,No Primary [Primary Care Provider] - Please follow up with your Primary Care Physician in: 3-5 days Test Results: Test results from this visit will be discussed in further detail at your follow-up appointment, if applicable.
--- NOTE | 2018-11-01 09:52 | DCINST_ITS ---
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 difficile colitis Call your doctor if you observe: Fever of 101 or Higher, Shortness of breath, Dizziness, Fainting spells, Swelling in the ankles, Chest pain, Increased palpitations (irregular heartbeat) Allergies/Adverse Reactions: Allergies codeine Allergy (Verified 10/29/18 14:05) Rash Penicillins Allergy (Verified 10/29/18 14:05) Rash Medications to take at Discharge [place] 450 mg PO BID 10/29/18 Garlic 1,000 mg PO BID 10/29/18 L.acidoph,Paracasei, B.lactis [Probiotic] 1 tab PO DAILY 10/29/18 Vancomcyin 125mg/5mL PO Liquid 125 mg PO Q6 11 Days #44 po.syringe 11/01/18 The following prescriptions were given: Vancomcyin 125mg/5mL PO Liquid 125 mg PO Q6 11 Days #44 po.syringe Primary Care Physician: Care Physician,No Primary [Primary Care Provider] - Please follow up with your Primary Care Physician in: 3-5 days Test Results: Test results from this visit will be discussed in further detail at your follow- up appointment, if applicable.
--- NOTE | 2018-11-01 09:54 | PCM.DC.SUM ---
Discharge Date and Diagnosis - Problem List Patient Problems: Active and Suspected Problems Ileocolitis (Acute) Date of Admission: 10/29/18 Date of Discharge: 11/01/18 - Primary Discharge Diagnosis Active and Suspected Problems Ileocolitis (Acute) - Secondary Discharge Diagnosis Chronic Problems Tobacco use (Chronic) Hospital Course and Treatment Imaging Results: CT abd/pelvis:IMPRESSION: 1. Terminal ileum and right colon wall thickening with pericolonic stranding and mild intra-abdominal fluid. Most likely represents infectious (Yersinia, salmonella could most common in this distribution) ileocolitis. Inflammatory bowel disease, ischemic colitis and neoplasm considered less likely. Consults: None Operations: None Procedures: None Summary of Care Provided: Per HPI: The patient is a 53 y/o F w/ PMHx: Tobacco use who presents to the [facility] ED on 10/29/18 with history of onset loose stools intermittently over the last 3-5 days with recent notable GI illness at her work ([employer] facility) with several staff and patient's with N/V/D who then had onset over the last 24 hours worsened abdominal cramping, RLQ worse, continued worsened more frequent diarrhea with nausea without emesis, recent poor oral intake with transition of stools to bloody diarrhea with no fevers or chills. She denied any recent abx therapy but again works at a [employer] facility with recent facility illness outbreak. Work-up in the ED included T 98.9, heart rate 91, BP 170/99, respiratory rate 16, 98% on room air, CBC with W BC 12.3, hemoglobin 14.4, platelet 203 with left shift, CMP not marked appearing, lipase 110, urinalysis unremarkable aside evidence of dehydration, stool occult blood positive, CT abdomen and pelvis with terminal ileum and right colon wall thickening with pericolonic stranding and mild intra-abdominal fluid concerning for infectious ileocolitis. The ED patient administered Tylenol, Zofran, Phenergan in addition to normal saline. Hospital Course: 1. C. 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 She came back positive for C. difficile and was started on p.o. vancomycin. Her symptoms have almost completely resolved she does have intermittent cramping however her diarrhea has subsided and she now has formed stools. We will plan for discharge today to complete 11 more days of p.o. vancomycin. 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 2. Her other medical diagnoses were evaluated and her home medications were continued where appropriate Patient Problems: Active and Suspected Problems Ileocolitis (Acute) Objective: General: Alert, Oriented x3, Cooperative, No apparent distress HEENT: Atraumatic, PERRLA, EOMI, Normocephalic Oral: Moist Mucosa Neck: Supple, No JVD, Trachea Midline Lungs: Clear to auscultation, Normal air movement, No rhonchi, No wheeze, No rales Cardiovascular: Regular rate, Regular Rhythm, Normal S1, Normal S2, No murmurs Abdomen: Soft, Non Tender, Non-Distended, No Hepato-splenomegaly Extremities: No edema, Capillary Refill Less than 3 Seconds Skin: No rashes, No breakdown Neurological: Neuro grossly intact, Sensory exam intact to light touch and pain Psych/Mental Status: Normal Affect, Appropriate - Physical Exam Vital Signs Temp Pulse Resp BP Pulse Ox 98.5 F 73 16 147/88 H 93 10/31/18 20:00 10/31/18 20:00 10/31/18 20:00 10/31/18 20:00 11/01/18 07:58 Oxygen Delivery Method Room Air Weight: 134 lb Body Mass Index (BMI) 23.7 Intake and Output for Last 24 Hours 10/30/18 10/31/18 11/01/18 23:59 23:59 23:59 Intake Total 3364 / 3364 5064 / 5064 2608 / 2608 Output Total 1355 / 1355 2475 / 2475 1350 / 1350 Balance 2008 2589 / 2589 1258 / 1258 Microbiology Past 72 Hours 10/29/18 07:50 Enteric Bacteriology - Final Stool 10/30/18 07:50 C. difficile DNA Amplification - Final Stool Toxigenic C. 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 difficile colitis Call your doctor if you observe: Fever of 101 or Higher, Shortness of breath, Dizziness, Fainting spells, Swelling in the ankles, Chest pain, Increased palpitations (irregular heartbeat) Home Medications: Medications to take at [facility] [place] 450 mg PO BID 10/29/18 Garlic 1,000 mg PO BID 10/29/18 L.acidoph,Paracasei, B.lactis [Probiotic] 1 tab PO DAILY 10/29/18 Vancomcyin 125mg/5mL PO Liquid 125 mg PO Q6 11 Days #44 po.syringe 11/01/18 Following Prescrptions Were Given to Patient: Vancomcyin 125mg/5mL PO Liquid 125 mg PO Q6 11 Days #44 po.syringe Primary Care Physician: Care Physician,No Primary [Primary Care Provider] - Please follow up with your Primary Care Physician in: 3-5 days Disposition: Home Minutes spent on discharge:: 35 Patient Condition:: Good Medical Necessity - Tobacco Use Smoking Status: Current every day smoker Tobacco Use: Cigarettes Meaningful Use Info Meaningful Use Diagnoses (Choose all that apply): None applicable Code Visit Inpatient E&M: 13332 Disch Hosp
--- NOTE | 2018-11-01 09:57 | DS.PCM_ITS ---
Discharge Date and Diagnosis - Problem List Patient Problems: Active and Suspected Problems Ileocolitis (Acute) Date of Admission: 10/29/18 Date of Discharge: 11/01/18 - Primary Discharge Diagnosis Active and Suspected Problems Ileocolitis (Acute) - Secondary Discharge Diagnosis Chronic Problems Tobacco use (Chronic) Hospital Course and Treatment Imaging Results: CT abd/pelvis:IMPRESSION: 1. Terminal ileum and right colon wall thickening with pericolonic stranding and mild intra-abdominal fluid. Most likely represents infectious (Yersinia, salmonella could most common in this distribution) ileocolitis. Inflammatory bowel disease, ischemic colitis and neoplasm considered less likely. 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 Work-up in the ED included T 98.9, heart rate 91, BP 170/99, respiratory rate 16, 98% on room air, CBC with W BC 12.3, hemoglobin 14.4, platelet 203 with left shift, CMP not marked appearing, lipase 110, urinalysis unremarkable aside evidence of dehydration, stool occult blood positive, CT abdomen and pelvis with terminal ileum and right colon wall thickening with pericolonic stranding and mild intra-abdominal fluid concerning for infectious ileocolitis. The ED patient administered Tylenol, Zofran, Phenergan in addition to normal saline. Hospital Course: 1. C. 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 She came back positive for C. difficile and was started on p.o. vancomycin. Her symptoms have almost completely resolved she does have intermittent cramping however her diarrhea has subsided and she now has formed stools. We will plan for discharge today to complete 11 more days of p.o. vancomycin. 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 2. Her other medical diagnoses were evaluated and her home medications were continued where appropriate Patient Problems: Active and Suspected Problems Ileocolitis (Acute) Objective: General: Alert, Oriented x3, Cooperative, No apparent distress HEENT: Atraumatic, PERRLA, EOMI, Normocephalic Oral: Moist Mucosa Neck: Supple, No JVD, Trachea Midline Lungs: Clear to auscultation, Normal air movement, No rhonchi, No wheeze, No rales Cardiovascular: Regular rate, Regular Rhythm, Normal S1, Normal S2, No murmurs Abdomen: Soft, Non Tender, Non-Distended, No Hepato-splenomegaly Extremities: No edema, Capillary Refill Less than 3 Seconds Skin: No rashes, No breakdown Neurological: Neuro grossly intact, Sensory exam intact to light touch and pain Psych/Mental Status: Normal Affect, Appropriate - Physical Exam Vital Signs Temp Pulse Resp BP Pulse Ox 98.5 F 73 16 147/88 H 93 10/31/18 20:00 10/31/18 20:00 10/31/18 20:00 10/31/18 20:00 11/01/18 07:58 Oxygen Delivery Method Room Air Weight: 134 lb Body Mass Index (BMI) 23.7 Intake and Output for Last 24 Hours 10/30/18 10/31/18 11/01/18 23:59 23:59 23:59 Intake Total 3364 / 3364 5064 / 5064 2608 / 2608 Output Total 1355 / 1355 2475 / 2475 1350 / 1350 Balance 2008 2589 / 2589 1258 / 1258 Microbiology Past 72 Hours 10/29/18 07:50 Enteric Bacteriology - Final Stool 10/30/18 07:50 C. difficile DNA Amplification - Final Stool Toxigenic C. 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 difficile colitis Call your doctor if you observe: Fever of 101 or Higher, Shortness of breath, Dizziness, Fainting spells, Swelling in the ankles, Chest pain, Increased palpitations (irregular heartbeat) Home Medications: Medications to take at [facility] [place] 450 mg PO BID 10/29/18 Garlic 1,000 mg PO BID 10/29/18 L.acidoph,Paracasei, B.lactis [Probiotic] 1 tab PO DAILY 10/29/18 Vancomcyin 125mg/5mL PO Liquid 125 mg PO Q6 11 Days #44 po.syringe 11/01/18 Following Prescrptions Were Given to Patient: Vancomcyin 125mg/5mL PO Liquid 125 mg PO Q6 11 Days #44 po.syringe Primary Care Physician: Care Physician,No Primary [Primary Care Provider] - Please follow up with your Primary Care Physician in: 3-5 days Disposition: Home Minutes spent on discharge:: 35 Patient Condition:: Good Medical Necessity - Tobacco Use Smoking Status: Current every day smoker Tobacco Use: Cigarettes Meaningful Use Info Meaningful Use Diagnoses (Choose all that apply): None applicable Code Visit Inpatient E&M: 74375 Disch Hosp
[2018-11-01 11:03] VITALS: BP 138/74; PULSE 74; RESP 18; TEMP 36.9; O2SAT 94
== END 2018-11-01 11:43 | disposition home or self-care (01) | DRG 373 ==
LOC: ED 15:06 → MS2 18:05
PROVIDERS: Admitting Provider Family Medicine; Emergency Provider Emergency Medicine; Referring Provider Family Medicine; Visit Provider Family Medicine
DX: A04.72 Enterocolitis due to Clostridium difficile, not specified as recurrent (principal); K21.9 Gastro-esophageal reflux disease without esophagitis; E86.0 Dehydration; F17.210 Nicotine dependence, cigarettes, uncomplicated
CPT/HCPCS: 36415; 74177; 80048; 80053; 81001; 82274; 83630; 83690; 85025; 87493; 87506; 97802; 99284; J7030; Q9967; A4216; J2405

== ENCOUNTER → 2019-10-12 | Outpatient (CLI) | payer OTHER, SELFPAY ==
[2018-10-29 18:30] VITALS: BMI 23.7
--- NOTE | 2019-10-12 | EMB_PTH ---
PATIENT: GERALD CENTENO LOC: [facility] U#:[id number] AGE/SX: 54/F ROOM: RE10/12/[address]: Dr. David Massey MD : 1965 BED: DIS: 10/12/2019 SPEC #: [id number] RECD: 10/13/19 11:56 STATUS: BETSEY JAKOB #: [id number] AMBER: 10/12/19 00:[address]: David Massey DEPT: SURGICAL PATHOLOGY RECD BY: Lionel Lara ENTERED: 10/13/19 11:57 SP TYPE: ENDOM BX/C LOR DR: No Primary Care Phys Tissues: Endometrium, NOS Procedures: Surgery Specimen Level IV HEADER OPERATION: Endometrial biopsy PRE-OP DIAGNOSIS: N95.0 TISSUE SUBMITTED: Endometrial biopsy MICROSCOPIC DIAGNOSIS Endometrial biopsy: Proliferative endometrium with glandular and stromal breakdown. SJ:mi 10/16/19 MICROSCOPIC DESCRIPTION Slides are reviewed. GROSS DESCRIPTION Received in fixative is one container labeled with the patient's name and designated endometrial biopsy. The specimen consists of multiple irregular fragments of reddish-morris soft tissue that in aggregate measure 2 x 1 x 0.1 cm. The specimen is totally submitted in one cassette. / AM:mi 10/13/19 TC:5 CPT: 14554
[2019-10-17 15:08] LABS: HPV Reflexed? NOT INDICATED
== END | disposition home or self-care (01) ==
LOC: LABSPEC 17:14
PROVIDERS: Visit Provider Obstetrics & Gynecology
DX: Z12.4 Encounter for screening for malignant neoplasm of cervix (principal); N95.0 Postmenopausal bleeding
CPT/HCPCS: 88175; 88305; G0145

== ENCOUNTER → 2019-11-02 | Outpatient (CLI) | payer SELFPAY ==
[2018-10-29 18:30] VITALS: BMI 23.7
== END | disposition home or self-care (01) ==
LOC: LABSPEC 16:11
PROVIDERS: Visit Provider Obstetrics & Gynecology
DX: N39.0 Urinary tract infection, site not specified (principal)
CPT/HCPCS: 87086; 87088

== ENCOUNTER 2020-07-07 07:24 | Emergency (ER) | payer SELFPAY ==
[2018-10-29 18:30] VITALS: BMI 23.7
[2020-07-07 07:24] VITALS: BP 153/104; PULSE 98; RESP 18; TEMP 36.4; O2SAT 99; BMI 25.8
--- NOTE | 2020-07-07 08:01 | ED.VIS.GI ---
History of Present Illness Chief Complaint: Back Informant: Patient - Abdominal Pain/Flank Pain Onset: Days Context: Gradual Onset Timing: Intermittent - initially, now constant x 1-2 days, Waxes and wanes - colicky at times Quality: Aching Location: RUQ - w/ radiation into right low back and at times into R shoulder Current Severity: Moderate Maximum Severity: Moderate Worsened by: Food - sometimes, with certain foods, like things that are spicy, within about an hour of eating Relieved by: Nothing - Nausea/Vomiting/Emesis GI Symptom: Nausea. Negative for: Vomiting - Diarrhea/Melena/Hematochezia GI Symptom: Diarrhea. Negative for: Melena, Hematochezia Onset: Today Stool Quality: Loose Episodes: 1 Associated Symptoms: Negative for: Dysuria, Frequency, Hematuria, Urgency Narrative: Patient presenting with the above abdominal symptoms in addition to subjective fevers and chills, headaches, myalgias. She denies any cough or respiratory symptoms. Patient presents during the national coronavirus emergency declaration/pandemic. 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 She denies traveling out of the immediate area recently. She states due to work, she is tested for Covid every 2 weeks and she has tested negative each and every time. At the beginning of the current symptoms, she was advised by her work to go home and get tested for Covid on the way home which she did. That test is not yet resulted, she checked her patient portal just prior to coming here this morning. - Past Medical History (1) GERD (gastroesophageal reflux disease) Status: Chronic Past Medical History - Allergies and Home Meds Allergies/Adverse Reactions: Allergies codeine Allergy (Verified 07/07/20 07:27) Rash Penicillins Allergy (Verified 07/07/20 07:27) Rash Primary Care Physician: Care Physician,No Primary [Primary Care Provider] - Surgical History: appendectomy Smoking Status: Current every day smoker Alcohol: None - Family History Maternal Family History: Reports: - - Patient denies any marked maternal or paternal family history including diabetes, cancer or heart disease. Paternal Family History: Reports: - - Patient denies any marked maternal or paternal family history including diabetes, cancer or heart disease. Review of Systems General: Reports: Chills, Fever, Malaise, Subjective. Denies: Sweats Eyes: Denies: Visual changes - bilaterally, Diplopia ENT: Denies: Bilateral ear pain, Rhinorrhea, Sore throat Cardiovascular: Denies: Chest pain, Palpitations Respiratory: Denies: Dyspnea, Cough, Dyspnea on exertion Gastrointestinal: Reports: Abdominal pain, Nausea, Diarrhea - once this AM, loose, nonbloody. Denies: Vomiting, Melena, Hematochezia Genitourinary: Denies: Dysuria, Hematuria, Frequency Musculoskeletal: Reports: Myalgias, Back pain. Denies: Neck pain, Swelling, Extremity Pain Skin: Denies: Rash, Wounds Neurological: Reports: Headache. Denies: Weakness, Numbness Physical Exam Vital Signs/Narrative: Vital Signs Temp Pulse Resp BP Pulse Ox 07/07/20 07:24 97.6 F L 98 18 153/104 H 99 Inital Vital Signs reviewed: Yes General: Well nourished, Well developed, No Acute Distress Head: Normocephalic, Atraumatic Eyes: Perrl, EOMI ENT: Moist mucous membranes, No rhinorrhea Neck: Supple, Nontender, No lymphadenopathy Cardiovascular: Regular rate, Regular rhythm, No murmurs. Negative for: Tachycardia Respiratory: No distress, CTA bilaterally, Chest nontender Abdomen: Soft, Nondistended, Normal bowel sounds, Tender - RUQ and into epigastrium and R mid abd; otherwise, NT. Negative for: Guarding, Rebound tenderness, Cox's sign Back: Nontender, Normal Inspection, - - FROM without pain/difficulty. Negative for: CVA tenderness Extremities: Nontender, No edema Skin: Normal color, No rash Neurological: Alert, Oriented x3, Cranial nerves II-XII grossly intact, Normal Strength, Normal Sensation Psychological: Normal affect, Normal Mood Diagnostic/Tx/Re-eval Laboratory Results 07/07/20 07/07/20 07/07/20 08:05 08:05 08:20 WBC 8.4 RBC 4.74 Hgb 15.3 H Hct 45.2 MCV 95.4 MCH 32.3 H MCHC 33.8 RDW Std Deviation 43.4 RDW Coeff of Beena 12.4 Plt Count 225 MPV 9.7 Immature Gran % (Auto) 0.200 Neut % (Auto) 76.1 H Lymph % (Auto) 17.9 L [place] % (Auto) 4.4 Eos % (Auto) 0.8 Baso % (Auto) 0.6 Absolute Neuts (auto) 6.4 Absolute Lymphs (auto) 1.50 Nucleated RBC % 0 Sodium 142 Potassium 3.6 Chloride 109 H Carbon Dioxide 28.0 Anion Gap 5 BUN 12 Creatinine 0.82 Estim Creat Clear Calc 64.88 Est GFR (MDRD) Af Amer 93 Est GFR (MDRD) Non-Af 77 BUN/Creatinine Ratio 14.7 Glucose 105 Calcium 9.3 Total Bilirubin 0.60 AST 9 L ALT 15 Alkaline Phosphatase 90 Total Protein 7.4 Albumin 3.6 Globulin 3.8 Albumin/Globulin Ratio 0.9 Lipase 139 Urine Color Yellow Urine Clarity Sl. Cloudy Urine pH 6.0 Ur Specific [place] 1.020 Urine Protein Negative Urine Glucose (UA) Normal Urine Ketones 15 H Urine Occult Blood Negative Urine Nitrite Negative Urine Bilirubin 1 H Urine Urobilinogen 1 H Ur Leukocyte Esterase 25 H Urine RBC 0 SEEN Urine WBC 0-5 SEEN Ur Squamous Epith Cells 0-5 SEEN Urine Bacteria RARE Urine Mucus 2+ - Medical Decision Making Patient presents on Wednesday when ultrasound is not available at this hospital, so I performed a bedside ED screening ultrasound with our small machine. She has a normal-appearing gallbladder with no stones and no gallbladder wall thickening with the wall measured by myself at 0.16 cm. She is mildly tender of the gallbladder, but she has sonographic tenderness in other areas with the gallbladder is not tender as well, with similar degree of tenderness which is relatively mild. The right kidney appears unremarkable, and there is no fluid in Morison's pouch. Her labs all returned normal including her white blood count. She has no respiratory symptoms or pleuritic nature to suggest the possibility of a right lower lobe pneumonia here, and her lungs are clear with pulse ox 98% on room air. She was treated with GI cocktail, Zofran, IV fluids, Bentyl. She did have improvement in her symptoms. She has a history of GERD, for which she takes a probiotic only. She wants to know natural treatment recommendations. I advised her that I practice allopathic medicine, and I would be happy to write her a prescription for a PPI that she may choose to use or not, in addition to prn dicyclomine. I advised that she follow-up with her PCP, if she continues to have this discomfort she may need an official ultrasound and/or HIDA scan, she states she has had one in the past that was negative but it was not recent. She states that for primary care, she just goes to the clinic across the street referring to the [facility] urgent care. She lives and works in 2 different areas not close to [place] so I do not have resources for primary care where she lives or works, but referred her to the primary care doctors at the [facility] which she is thankful for. We discussed reasons to return. I do not think she needs a CT scan at this time, nor other emergent work-up. Her COVID-19 test is pending as an outpatient, I do not think that needs to be repeated urgently, although that certainly is in the differential diagnosis as well. She knows to quarantine and stay home from work until that test results, which will likely be tomorrow or Wednesday. ED Disposition - Plan for ED Patient: Disposition: Home or Assisted Living Diagnosis: Upper abdominal pain Instructions: ED Abdominal Pain Unkn Cause Fem Prescriptions: Dicyclomine HCl [Bentyl] 1 cap PO Q6H PRN #20 cap PRN Reason: abdominal pain Prescription Printed Omeprazole 1 cap PO DAILY #30 capsule.dr Prescription Printed Ondansetron [Zofran Odt] 8 mg PO Q8H PRN PRN #20 tab PRN Reason: Nausea Prescription Printed Referrals: aVnessa Yanez MD [STAFF PHYSICIAN] - 3-5 Days if not improving
[2020-07-07 08:13] LABS: Absolute Neutrophil Count 6.4 X10^3/uL (2.0-7.7); Basophil# 0.05 X10^3/uL; Basophil% 0.6 % (0-1); Eosinophil# 0.07 X10^3/uL; Eosinophils% 0.8 % (0-5); Hematocrit 45.2 % (37-47); Hemoglobin 15.3 g/dL (12.0-15.0); Lymphocyte % 17.9 % (19-41); Mean Corp Hgb Conc 33.8 g/dL (32-36); Mean Corpuscular Hgb 32.3 pg (27.0-32.0); Mean Corpuscular Volume 95.4 fL (81-99); Mean Platelet Vol. 9.7 fl (6.2-12.0); Monocyte# 0.37 X10^3/uL; Monocyte% 4.4 % (0-10); NRBC Flagged by Analyzer 0 % (0-5); Neutrophil # 6.36 X10^3/uL (2.7-7.7); Neutrophil % 76.1 % (47-70); Platelet Count 225 K/mm3 (150-450); RBC Distribution Width CV 12.4 % (11.6-14.6); RBC Distribution Width SD 43.4 fl (35.1-43.9); Red Blood Count 4.74 M/mm3 (4.2-5.4); White Blood Count 8.4 K/mm3 (4.4-11.0)
[2020-07-07] MEDS: 0.9% Normal Saline 1,000 ML 250 ML IV (08:23)
[2020-07-07] MEDS: Dicyclomine 10 MG Capsule 20 MG PO (08:23)
[2020-07-07] MEDS: Mag Hydrox/Al Hydrox/Simeth 30 ML UDC PO (08:23)
[2020-07-07] MEDS: Ondansetron 4 MG/2 ML Vial IV (08:24)
[2020-07-07 08:27] LABS: Red Blood Cells-Urine 0 SEEN /hpf (0-5)
[2020-07-07 08:29] VITALS: BP 162/95; PULSE 76; RESP 16; TEMP 36.4; O2SAT 98
[2020-07-07 08:29] LABS: ALB/GLOB Ratio 0.9 RATIO (0.9-2.4); AST(SGOT) 9 U/L (15-37); Alanine Aminotransfer ALT/SGPT 15 U/L (13-56); Albumin, Serum 3.6 g/dL (3.2-5.0); Alkaline Phosphatase 90 U/L (45-117); Anion Gap 5 (5-15); BUN 12 mg/dL (7-18); BUN/Creat Ratio 14.7 RATIO (10-20); Calcium,Total 9.3 mg/dL (8.5-10.1); Chloride 109 mmol/L (98-107); Creatinine, Serum 0.82 mg/dL (0.55-1.02); EST Glomerular Filtration Rate 77 mL/min (>60); Est Glom Filt Rate - Afr Amer 93 mL/min (>60); Estimated Creatinine Clearance 64.88 ml/min; Globulin 3.8 g/dL (2.2-4.2); Glucose 105 mg/dL (74-106); Lipase 139 U/L (73-393); Potassium 3.6 mmol/L (3.5-5.1); Protein, Total 7.4 g/dL (6.4-8.2); Sodium Level 142 mmol/L (136-145)
[2020-07-07 08:31] LABS: Color, Urine Yellow (Yellow); Glucose, Dipstick Normal (Normal); Ketone-Dipstick 15 mg/dl (Negative); Leukocyte Esterase-Dipstick 25 /ul (Negative); Nitrite-Dipstick Negative (Negative); Occult Blood-Urine Negative /ul (Negative); Protein-Dipstick Negative (Negative); Urine Clarity Sl. Cloudy (Clear); Urine Urobilinogen 1 mg/dl (Normal)
[2020-07-07 08:34] LABS: Urine Bilirubin Dipstick 1 mg/dL (Negative)
[2020-07-07 08:40] LABS: Bacteria RARE /hpf (None Seen); Mucous, Urine 2+ /hpf (<or=2+); Squamous Epithelial Cells - UA 0-5 SEEN /hpf (5-10); White Blood Cells 0-5 SEEN /hpf (0-5)
[2020-07-07 09:14] VITALS: BP 147/108; PULSE 69; RESP 16; O2SAT 98
== END 2020-07-07 09:15 | disposition home or self-care (01) ==
PROVIDERS: Emergency Provider Emergency Medicine
DX: R10.11 Right upper quadrant pain (principal); R10.13 Epigastric pain; K21.9 Gastro-esophageal reflux disease without esophagitis; F17.200 Nicotine dependence, unspecified, uncomplicated
CPT/HCPCS: 80053; 81001; 83690; 85025; 96361; 96374; 99285; J7030; A4216; J2405

== ENCOUNTER 2020-09-14 15:52 | Emergency (ER) | payer SELFPAY ==
[2020-09-14 15:52] VITALS: BP 149/99; PULSE 95; RESP 16; TEMP 36.2; O2SAT 97; BMI 26.5
[2020-09-14] MEDS: Ketorolac 30 MG/ML Syringe IV (16:23)
[2020-09-14 16:33] LABS: Bacteria 0 SEEN /hpf (None Seen); Mucous, Urine 0 SEEN /hpf (<or=2+); Red Blood Cells-Urine 0 SEEN /hpf (0-5); Squamous Epithelial Cells - UA 0 SEEN /hpf (5-10); White Blood Cells 0 SEEN /hpf (0-5)
[2020-09-14 16:41] LABS: Color, Urine Straw (Yellow); Glucose, Dipstick Normal (Normal); Ketone-Dipstick 5 mg/dl (Negative); Leukocyte Esterase-Dipstick Negative /ul (Negative); Nitrite-Dipstick Negative (Negative); Occult Blood-Urine Negative /ul (Negative); Protein-Dipstick Negative (Negative); Urine Bilirubin Dipstick Negative (Negative); Urine Clarity Clear (Clear); Urine Urobilinogen Normal (Normal); Urine pH 6.5 (5.0 - 8.0)
[2020-09-14 16:53] LABS: AST(SGOT) 11 U/L (15-37); Alanine Aminotransfer ALT/SGPT 16 U/L (13-56); Albumin, Serum 3.5 g/dL (3.2-5.0); Alkaline Phosphatase 91 U/L (45-117); Anion Gap 5 (5-15); BUN 11 mg/dL (7-18); BUN/Creat Ratio 14.2 RATIO (10-20); Bilirubin, Direct 0.14 mg/dL (0.00-0.30); Chloride 109 mmol/L (98-107); Creatinine, Serum 0.77 mg/dL (0.55-1.02); EST Glomerular Filtration Rate 82 mL/min (>60); Est Glom Filt Rate - Afr Amer 100 mL/min (>60); Estimated Creatinine Clearance 68.29 ml/min; Globulin 4.1 g/dL (2.2-4.2); Glucose 79 mg/dL (74-106); Lipase 73 U/L (73-393); Potassium 3.5 mmol/L (3.5-5.1); Protein, Total 7.6 g/dL (6.4-8.2); Sodium Level 141 mmol/L (136-145)
[2020-09-14 16:55] LABS: Absolute Lymphocyte Count 1.83 X10^3/uL (0.83-4.51); Basophil# 0.05 X10^3/uL; Basophil% 0.5 % (0-1); Eosinophils% 1.1 % (0-5); Hemoglobin 14.5 g/dL (12.0-15.0); Lymphocyte # 1.83 X10^3/ul (4.0); Lymphocyte % 19.3 % (19-41); Mean Corp Hgb Conc 33.7 g/dL (32-36); Mean Corpuscular Hgb 32.1 pg (27.0-32.0); Mean Corpuscular Volume 95.1 fL (81-99); Mean Platelet Vol. 9.9 fl (6.2-12.0); Monocyte# 0.47 X10^3/uL; NRBC Flagged by Analyzer 0 % (0-5); Neutrophil # 7.01 X10^3/uL (2.7-7.7); Neutrophil % 73.8 % (47-70); Platelet Count 214 K/mm3 (150-450); RBC Distribution Width CV 12.6 % (11.6-14.6); RBC Distribution Width SD 44.1 fl (35.1-43.9); Red Blood Count 4.52 M/mm3 (4.2-5.4); White Blood Count 9.5 K/mm3 (4.4-11.0)
--- NOTE | 2020-09-14 17:16 | CT_ITS ---
STUDY: CT ABDOMEN AND PELVIS WITH CONTRAST REASON FOR EXAM: Female, 55 years old. Left lower quadrant pain RADIATION DOSAGE (If Supplied By Facility): CTDIvol = ( 10.37 ) mGy, DLP = ( 651.62 ) mGycm TECHNIQUE: Transaxial images were obtained from the dome of the diaphragm to the symphysis pubis without oral contrast. 100 ml of ISOVUE-370 contrast was administered. Sagittal and coronal images were reconstructed. Individualized dose optimization techniques were used for this CT. COMPARISON: 11-15 FINDINGS: The visualized lung bases are clear. The visualized portions of the heart and pericardium are within normal limits. There are no calcified gallstones present. There is a stable simple cyst in the liver. The liver is otherwise within normal limits. There are no suspicious hepatic lesions. The spleen is normal in size. The pancreas is within normal limits. There is a 1.7 x 1.5 cm indeterminate left adrenal nodule. The right adrenal gland is within normal limits. There are no renal or ureteral stones. There is no hydronephrosis. There are no focal renal lesions. Normal visualized stomach. There is no bowel obstruction. There are postsurgical changes in the right lower quadrant for prior bowel resection. There are inflammatory changes in the left lower quadrant adjacent to an inflamed diverticulum in the sigmoid colon. This is consistent with acute sigmoid diverticulitis. The aorta is normal in caliber. There is no abdominal or pelvic free air, free fluid, fluid collection or lymphadenopathy. There are no destructive osseous lesions. CT/Abdomen/Pelvis W IV Cont ONLY IMPRESSION: Acute sigmoid diverticulitis. No free air, free fluid or fluid collection. Indeterminate left adrenal nodule Electronically Signed: Yusuf Doan MD at 17:47 EST Tel , Service support ,
--- NOTE | 2020-09-14 17:56 | ED.DCSUM_ITS ---
History of Present Illness Chief Complaint: Abd Pain Informant: Patient Onset: Days - 3 days Context: Sudden Onset Timing: Waxes and wanes Current Severity: Mild Maximum Severity: Moderate Narrative: Patient presents with 3-day history of left-sided abdominal pain. She has had some intermittent nausea and felt warm but did not measure her temperature. She denies vomiting or diarrhea. She has had prior appendectomy. She has had problems with reflux in the past but states this pain feels quite different. - Past Medical History (1) GERD (gastroesophageal reflux disease) Status: Chronic Past Medical History - Allergies and Home Meds Allergies/Adverse Reactions: Allergies codeine Allergy (Verified 09/14/20 15:52) Rash Penicillins Allergy (Verified 09/14/20 15:52) Rash Primary Care Physician: Morales Davis PA [Primary Care Provider] - Prior records reviewed: Yes Surgical History: appendectomy Smoking Status: Current every day smoker - Family History Maternal Family History: Reports: - - Patient denies any marked maternal or paternal family history including diabetes, cancer or heart disease. Paternal Family History: Reports: - - Patient denies any marked maternal or paternal family history including diabetes, cancer or heart disease. Review of Systems General: Reports: Fever, Subjective. Denies: Chills Eyes: Denies: Visual changes - bilaterally ENT: Denies: Bilateral ear pain Cardiovascular: Denies: Chest pain Respiratory: Denies: Dyspnea, Cough Gastrointestinal: Reports: Abdominal pain, Nausea. Denies: Vomiting, Diarrhea Genitourinary: Denies: Dysuria Musculoskeletal: Denies: Swelling, Extremity Pain Neurological: Denies: Headache Hematologic: Denies: Easy bruising, Easy bleeding Allergy: Denies: Uticaria Physical Exam Vital Signs/Narrative: Vital Signs Temp Pulse Resp BP Pulse Ox 09/14/20 15:52 97.1 F L 95 16 149/99 H 97 Inital Vital Signs reviewed: Yes General: Well nourished, Well developed Head: Normocephalic ENT: Moist mucous membranes Neck: Supple Cardiovascular: Regular rate, Regular rhythm Respiratory: No distress, CTA bilaterally Abdomen: Soft, Tender - Mild left-sided abdominal tenderness.. Negative for: Guarding, Rebound tenderness Extremities: Nontender Skin: Normal color Neurological: Alert, Oriented x3, Normal Strength, Normal Sensation Psychological: Normal affect Diagnostic/Tx/Re-eval Impressions Abdomen/Pelvis CT 09/14/20 17:16 IMPRESSION: Acute sigmoid diverticulitis. No free air, free fluid or fluid collection. Indeterminate left adrenal nodule Electronically Signed: Yusuf Doan MD at 17:47 EST Tel , Service support , 09/14/20 17:16 Abdomen/Pelvis W IV Cont ONLY [CT] Stat Laboratory Results 09/14/20 09/14/20 09/14/20 16:15 16:25 16:25 WBC 9.5 RBC 4.52 Hgb 14.5 Hct 43.0 MCV 95.1 MCH 32.1 H MCHC 33.7 RDW Std Deviation 44.1 H RDW Coeff of Beena 12.6 Plt Count 214 MPV 9.9 Immature Gran % (Auto) 0.300 Neut % (Auto) 73.8 H Lymph % (Auto) 19.3 [place] % (Auto) 5.0 Eos % (Auto) 1.1 Baso % (Auto) 0.5 Absolute Neuts (auto) 7.0 Absolute Lymphs (auto) 1.83 Nucleated RBC % 0 Sodium 141 Potassium 3.5 Chloride 109 H Carbon Dioxide 27.0 Anion Gap 5 BUN 11 Creatinine 0.77 Estim Creat Clear Calc 68.29 Est GFR (MDRD) Af Amer 100 Est GFR (MDRD) Non-Af 82 BUN/Creatinine Ratio 14.2 Glucose 79 Calcium 9.0 Total Bilirubin 0.70 Direct Bilirubin 0.14 AST 11 L ALT 16 Alkaline Phosphatase 91 Total Protein 7.6 Albumin 3.5 Globulin 4.1 Lipase 73 Urine Color Straw Urine Clarity Clear Urine pH 6.5 Ur Specific [place] 1.010 Urine Protein Negative Urine Glucose (UA) Normal Urine Ketones 5 H Urine Occult Blood Negative Urine Nitrite Negative Urine Bilirubin Negative Urine Urobilinogen Normal Ur Leukocyte Esterase Negative Urine RBC 0 SEEN Urine WBC 0 SEEN Ur Squamous Epith Cells 0 SEEN Urine Bacteria 0 SEEN Urine Mucus 0 SEEN - Medical Decision Making Patient was given Toradol for pain. On repeat evaluation labs and urine are discussed with her. She does state that this does not feel like her typical reflux disease and it was a rather abrupt onset. In light of this CT with IV contrast is obtained and reveals evidence of mild diverticulitis. She will be treated with Cipro and Flagyl, first dose was provided here. ED Disposition - Plan for ED Patient: Disposition: Home or Assisted Living Diagnosis: Diverticulitis Instructions: ED Diverticulitis Prescriptions: Ciprofloxacin [Cipro] 500 mg PO BID #14 tab Transmission Status: Pending to [facility] metroNIDAZOLE [Flagyl] 500 mg PO Q6H #40 tab Transmission Status: Pending to [facility] Referrals: Morales Davis PA [Primary Care Provider] - 1-2 Weeks
[2020-09-14] MEDS: Ciprofloxacin 500 MG Tablet PO (18:12)
[2020-09-14] MEDS: metroNIDAZOLE 500 MG Tablet PO (18:12)
[2020-09-14 18:13] VITALS: BP 143/90; PULSE 70; RESP 16; O2SAT 98
== END 2020-09-14 18:19 | disposition home or self-care (01) ==
PROVIDERS: Emergency Provider Emergency Medicine; PCP Physician Assistant
DX: K57.32 Diverticulitis of large intestine without perforation or abscess without bleeding (principal); F17.200 Nicotine dependence, unspecified, uncomplicated
CPT/HCPCS: 74177; 80048; 80076; 81001; 83690; 85025; 96374; 99284; Q9967; A4216

== ENCOUNTER 2024-05-17 12:57 | Inpatient (IN) | payer SELFPAY ==
[2024-05-17] VITALS (8 sets, daily range): BP systolic 146–194; BP diastolic 95–140; PULSE 69–83; RESP 14–20; TEMP 36.2–36.8; O2SAT 96–100; BMI 33.2; BMI 32.8
--- NOTE | 2024-05-17 13:10 | EKG12_ITS ---
Test Reason : POSS STROKE Blood Pressure : / mmHG Vent. Rate : 073 BPM Atrial Rate : 073 BPM P-R Int : 178 ms QRS Dur : 088 ms QT Int : 400 ms P-R-T Axes : 065 069 051 degrees QTc Int : 440 ms Normal sinus rhythm Normal ECG Confirmed by Waldemar Lambert ([id number]), assignment desk editor YUMIKO TA ([id number]) on 05/22/2024 10:22:13 AM Referred By: Je Merchant Confirmed By:Waldemar Lambert
--- NOTE | 2024-05-17 13:10 | CT_ITS ---
STUDY: CTA HEAD AND NECK WITH CONTRAST REASON FOR EXAM: Female, 58 years old. 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 Data acquisition was obtained from the skull base through the vertex following intravenous administration of IV 100mL Isovue-370. MIP images were reconstructed from the axial data set. Post-processing of the angiographic images was performed, with multiplanar reformation and 3D reconstruction. Individualized dose optimization techniques were used for this CT. COMPARISON: No relevant priors. FINDINGS: Normal bilateral petrous carotid arteries. There is calcified plaque formation of the right cavernous carotid artery, without a cross-sectional luminal stenosis. There is calcified plaque formation of the left cavernous carotid artery, without a cross-sectional luminal stenosis. Normal right A1 segments of the anterior cerebral artery. Normal left A1 segments of the anterior cerebral artery. Normal intact anterior communicating artery (ACOM). Normal bilateral A2 segments of the anterior cerebral arteries. Normal right M1 and M2 segments of the middle cerebral arteries, with a normal M1 bifurcation. Normal left M1 and M2 segments of the middle cerebral arteries, with a normal M1 bifurcation. Normal right posterior communicating artery (PCOM). Normal left posterior communicating artery (PCOM). Normal bilateral vertebral arteries. Normal basilar artery with a normal basilar bifurcation. The visualized bilateral superior cerebellar (SCA) arteries are normal. Normal bilateral P1, P2 and visualized P3 segments of the posterior cerebral arteries. There is no demonstrated aneurysm of the [place] of [place]. There is a 8.2 mm lacuna in the insular cortex of the left temporal lobe. AORTIC ARCH: Normal visualized aortic arch. Normal origins of the brachiocephalic, left common carotid, and left subclavian arteries. RIGHT CAROTID ARTERIES: Normal right common carotid artery (CCA). Normal right common carotid bulb. Normal origin of the right internal carotid (ICA) artery without a hemodynamically significant stenosis. Normal visualized cervical portion of the right internal carotid artery. Normal origin of the right external carotid artery (ECA). LEFT CAROTID ARTERIES: Normal left common carotid artery (CCA). Normal left common carotid bulb. Normal origin of the left internal carotid (ICA) artery without a hemodynamically significant stenosis. Normal visualized cervical portion of the left internal carotid artery. Normal origin of the left external carotid artery (ECA). VERTEBRAL ARTERIES: Normal bilateral vertebral arteries. CT/CTA Head AND Neck W/ Contrast IMPRESSION: Normal CTA Head and neck with contrast. 8.2 mm the colon in the insular cortex of the left temporal Electronically Signed: Fady Schaffer MD at 14:18 EDT ,
--- NOTE | 2024-05-17 13:12 | NURSING ---
NO OLD EKGS
[2024-05-17 13:27] LABS: Absolute Lymphocyte Count 2.31 X10^3/uL (0.83-4.51); Basophil# 0.06 X10^3/uL; Basophil% 0.7 % (0-1); Eosinophils% 1.1 % (0-5); Hematocrit 43.1 % (37-47); Hemoglobin 14.2 g/dL (12.0-15.0); Lymphocyte # 2.31 X10^3/ul (0.83-4.51); Lymphocyte % 25.8 % (19-41); Mean Corp Hgb Conc 32.9 g/dL (32-36); Mean Corpuscular Hgb 31.9 pg (27.0-32.0); Mean Corpuscular Volume 96.9 fL (81-99); Mean Platelet Vol. 10.2 fl (6.2-12.0); Monocyte# 0.42 X10^3/uL; Monocyte% 4.7 % (0-10); NRBC Flagged by Analyzer 0 % (0-5); Neutrophil # 6.04 X10^3/uL (2.7-7.7); Neutrophil % 67.4 % (47-70); Platelet Count 244 K/mm3 (150-450); RBC Distribution Width CV 13.2 % (11.6-14.6); RBC Distribution Width SD 47.2 fl (35.1-43.9); Red Blood Count 4.45 M/mm3 (4.2-5.4)
[2024-05-17] MEDS: 0.9% Normal Saline (1000mL) 1,000 ML 999 ML IV (13:37)
[2024-05-17 13:42] LABS: International Normalized Ratio 0.9; Prothrombin Time (Protime)PT. 12.4 SECONDS (11.7-14.9)
[2024-05-17 13:43] LABS: Partial Thromboplast Time 29.6 Seconds (24.1-36.2)
[2024-05-17 13:47] LABS: ALB/GLOB Ratio 0.8 RATIO (0.9-2.4); AST(SGOT) 13 U/L (15-37); Alanine Aminotransfer ALT/SGPT 15 U/L (13-56); Albumin, Serum 3.4 g/dL (3.2-5.0); Alkaline Phosphatase 99 U/L (45-117); Anion Gap 8 (5-15); BUN 12 mg/dL (7-18); BUN/Creat Ratio 14.3 RATIO (10-20); Calcium,Total 9.3 mg/dL (8.5-10.1); Chloride 109 mmol/L (98-107); Creatinine, Serum 0.84 mg/dL (0.55-1.02); EST Glomerular Filtration Rate 74 mL/min (>60); Est Glom Filt Rate - Afr Amer 90 mL/min (>60); Estimated Creatinine Clearance 75.42 ml/min; Globulin 4.1 g/dL (2.2-4.2); Glucose 104 mg/dL (74-106); Potassium 3.9 mmol/L (3.5-5.1); Protein, Total 7.5 g/dL (6.4-8.2); Sodium Level 143 mmol/L (136-145); Troponin-I HS < 3 pg/mL (3.0-54.0)
[2024-05-17 14:02] LABS: Red Blood Cells-Urine 0 SEEN /hpf (0-5)
[2024-05-17 14:04] LABS: Color, Urine Yellow (Yellow); Glucose, Dipstick Normal (Normal); Ketone-Dipstick Negative (Negative); Leukocyte Esterase-Dipstick 25 /ul (Negative); Nitrite-Dipstick Negative (Negative); Occult Blood-Urine Negative /ul (Negative); Protein-Dipstick 30 mg/dl (Negative); Specific Gravity, Urine 1.025 (1.002-1.030); Urine Bilirubin Dipstick Negative (Negative); Urine Clarity Sl. Cloudy (Clear); Urine Urobilinogen 1 mg/dl (Normal)
[2024-05-17 14:24] LABS: Bacteria 2+ /hpf (None Seen); Mucous, Urine 1+ /hpf (<or=2+); Squamous Epithelial Cells - UA 0-5 SEEN /hpf (5-10)
[2024-05-17 14:25] LABS: White Blood Cells 0-5 SEEN /hpf (0-5)
--- NOTE | 2024-05-17 14:31 | EDS_ITS ---
HPI History of Present Illness Chief Complaint: Eye Problem Narrative Narrative: Patient is a 58-year-old female with no known significant past medical history who presented from her observation assistant office with a chief complaint of abnormal vision in her right eye. Patient states that around 6 PM yesterday evening she was her normal self took a nap for about an hour when she woke up around 7 noted that she had difficulty seeing out of her right eye. She states that it looks like a curtain around my pupil with a partial lips. States that she followed up with her observation assistant today in outpatient setting who ultimately sent her here for further evaluation management. Patient states that her vision is about the same at this point time and has no other complaints. PFSH PFSH Home Medications ?Medication ?Instructions ?Recorded ?Last Taken ?Type L.acidoph, paracasei,B. lactis 10 1 tab PO DAILY supplement 10/29/18 10/28/18 History billion cell capsule capsicum (cayenne) 450 mg capsule 450 mg PO BID supplement 10/29/18 10/28/18 History garlic 1,000 mg capsule 1,000 mg PO BID supplement 10/29/18 10/28/18 History ciprofloxacin HCl 500 mg tablet 500 mg PO BID #14 tabs 09/14/20 Unknown Rx metronidazole 500 mg tablet 500 mg PO Q6H #40 tabs 09/14/20 Unknown Rx Allergy/AdvReac Type Severity Reaction Status Date / Time codeine Allergy Rash Verified 09/14/20 15:52 Penicillins Allergy Rash Verified 09/14/20 15:52 Social History Smoking Status: Current every day smoker tobacco type: cigarettes ROS ROS ED ROS Narrative Constitutional: Patient denies any headaches, fevers, chills, lightheadedness, dizziness Eyes: Complains of changes in vision out of right eye as noted above Cardiovascular: Denies chest pain or palpitations Respiratory: Denies coughing wheezing shortness of breath Abdomen: Denies abdominal pain nausea vomit diarrhea : Denies any urinary symptoms Neurological: Denies numbness, weakness, tingling Musculoskeletal: Denies back pain Skin: Denies rashes or lesions EXAM Physical Exam Narrative Exam Narrative: General: Patient lying in bed rest comfortably did not appear to be in acute distress Head: Atraumatic, normocephalic Eyes: PERRL bilaterally, EOMI bilateral, no conjunctival injection noted Neck: Soft, supple, trachea midline Cardiovascular: Regular rate and rhythm no murmurs gallops rubs noted Respiratory: Clear to auscultation bilaterally no rales rhonchi or wheezes noted Abdomen: Soft, nondistended, nontender to palpation, bowel sounds present x 4 Extremities: +5/5 strength noted in the bilateral upper and lower extremities, no pedal edema on exam, bowel sounds present x 4 Neurological: Patient following commands knew that she was at [facility] the year is 2023. Patient completed finger-nose and [id number] test bilaterally thigh difficulty. GCS of 15, NIH of 1. Skin: Warm, dry, intact Const Vital Signs: 05/17/24 12:58 05/17/24 13:18 Temperature 98.3 F Temperature Source Oral Pulse Rate 83 Respiratory Rate 20 H Blood Pressure 194/140 H 172/104 H Blood Pressure Mean 158 126 Pulse Ox 96 Oxygen Delivery Method Room Air MDM MDM MDM Narrative Medical decision making narrative: Patient is a 58-year-old female who presented to the emergency department with a chief complaint of vision out of her right eye as noted above. Patient's observation assistant called here and I took report and noted that she has a central retinal artery occlusion which she was sent here for further evaluation management. Patient will have workup performed here on the differential diagnose includes but limited to ischemic stroke, large vessel occlusion, central retinal artery occlusion. Once workup is obtained reviewed she will be reevaluated. Patient's CBC reviewed and showed no evidence leukocytosis white blood count normal at 9, hemoglobin stable 14.2, platelet count normal at 244. Patient INR normal at 0.9, sodium normal at 143, potassium normal 3.9, creatinine normal at 0.84. Patient's AST and ALT were 13 and 15 respectively, troponin normal at less than 3, EKG reviewed and showed sinus rhythm with a rate of 73 bpm. Patient's urinalysis did not reveal any evidence of infection. Did discuss case with Dr. Yeager teleeduardaurologvonnie at [facility] who is recommending admission for stroke workup pending no large vessel occlusion. Patient's CT head and neck without contrast showed no acute intracranial h emorrhage and there is no evidence of large vessel occlusion. Was concerning for infarct on her head CT. Patient will be given aspirin 325 mg and I will have discussion with hospitalist for admission Did discuss case with hospitalist Dr. Oliveira who accept patient for admission. Did discuss results with the patient she is agreeable with the plan all question concerns were answered at bedside. Lab Data Labs: Laboratory Results - last 24 hr 05/17/24 05/17/24 13:05 13:58 WBC 9.0 RBC 4.45 Hgb 14.2 Hct 43.1 MCV 96.9 MCH 31.9 MCHC 32.9 RDW Std Deviation 47.2 H RDW Coeff of Beena 13.2 Plt Count 244 MPV 10.2 Immature Gran % (Auto) 0.300 Neut % (Auto) 67.4 Lymph % (Auto) 25.8 [place] % (Auto) 4.7 Eos % (Auto) 1.1 Baso % (Auto) 0.7 Absolute Neuts (auto) 6.0 Absolute Lymphs (auto) 2.31 Nucleated RBC % 0 PT 12.4 INR 0.9 APTT 29.6 Sodium 143 Potassium 3.9 Chloride 109 H Carbon Dioxide 26.0 Anion Gap 8 BUN 12 Creatinine 0.84 Estim Creat Clear Calc 75.42 Est GFR (MDRD) Af Amer 90 Est GFR (MDRD) Non-Af 74 BUN/Creatinine Ratio 14.3 Glucose 104 Calcium 9.3 Total Bilirubin 0.50 AST 13 L ALT 15 Alkaline Phosphatase 99 Troponin I High Sens < 3 L Total Protein 7.5 Albumin 3.4 Globulin 4.1 Albumin/Globulin Ratio 0.8 L Urine Color Yellow Urine Clarity Sl. Cloudy Urine pH 6.0 Ur Specific [place] 1.025 Urine Protein 30 H Urine Glucose (UA) Normal Urine Ketones Negative Urine Occult Blood Negative Urine Nitrite Negative Urine Bilirubin Negative Urine Urobilinogen 1 H Ur Leukocyte Esterase 25 H Urine RBC 0 SEEN Urine WBC 0-5 SEEN Ur Squamous Epith Cells 0-5 SEEN Urine Bacteria 2+ Urine Mucus 1+ Radiography Diagnostic Testing: Clinical Impression(s) from Imaging Studies Head/Neck CTA 05/17/24 13:10 IMPRESSION: Normal CTA Head and neck with contrast. 8.2 mm the colon in the insular cortex of the left temporal Electronically Signed: Fady Schaffer MD at 14:18 EDT , Discharge Plan Triage Chief Complaint: Eye Problem ED Provider: Je Merchant Dx/Rx/DC Orders Clinical Impression: CVA (cerebral vascular accident), Central retinal artery occlusion Prescriptions: No Action capsicum (cayenne) 450 MG capsule 450 mg PO BID garlic 1,000 MG capsule 1,000 mg PO BID L.acidoph, paracasei,B. lactis 1 EACH capsule 1 tab PO DAILY ciprofloxacin HCl 500 MG tablet 500 mg PO BID Qty: 14 0RF metronidazole 500 MG tablet 500 mg PO Q6H Qty: 40 0RF Primary Care Provider: Care Physician,No Primary Referrals: Care Physician,No Primary [Primary Care Provider] - Print Language: Persian
[2024-05-17] MEDS: Aspirin 325 MG Tablet PO (14:45)
--- NOTE | 2024-05-17 15:30 | MRI_ITS ---
STUDY: MRI BRAIN WITHOUT CONTRAST REASON FOR EXAM: Female, 58 years old. stroke, SEEING RT EYE and quot;FLOATIES and quot; TECHNIQUE: Standardized multiplanar fat and water weighted pulse sequences were obtained. COMPARISON: None. FINDINGS: Normal size of the ventricles and extra-axial spaces for the patient''s age. Solitary white matter lesion in the left frontal lobe without mass effect or restricted diffusion likely of no significance. Prominent perivascular space in the left medial temporal region Normal bilateral basal ganglia. Normal thalami. There is no extra-axial fluid accumulation. Normal flow voids within the major intracranial circulation suggesting patency by spin echo criteria. Normal sella turcica, pituitary gland, infundibular stalk, optic chiasm and hypothalamus. Normal tectal plate and pineal gland. Normal midbrain, adonis and medulla. Normal cerebellum. Normal basal cisterns. Normal bilateral temporal bones. Normal bilateral internal auditory canals. No demonstrated orbital abnormality, within the constraints of a routine brain study. Normal visualized paranasal sinuses. Normal calvarium and skull base. Normal visualized soft tissue structures. Normal visualized upper cervical spine. MRI/Brain without Contrast IMPRESSION: Minimal white matter changes. No evidence for acute infarct or other significant abnormality Electronically Signed: Vince Villarreal MD at 19:41 EDT ,
--- NOTE | 2024-05-17 15:30 | ECHOD_ITS ---
Reason For Study: TIA/CVA Procedure This was a 2D Doppler, Color Flow transthoracic echocardiogram. Exam performed portable in patient room. Left Ventricle Normal LV size. Mild concentric left ventricular hypertrophy. The left ventricular ejection fraction is 65 %. Diastolic function is indeterminate. Right Ventricle Normal right ventricle. Atria The left and right atria are normal. Bubble contrast study is negative for PFO/ASD. Mitral Valve Trivial mitral valve insufficiency. Tricuspid Valve Normal tricuspid valve. Aortic Valve Trisinus/trileaflet aortic valve. Pulmonic Valve The pulmonic valve is not well visualized. Trivial pulmonic valve insufficiency. Great Vessels Normal sized aortic root. Pericardium/Pleural No pericardial effusion. Medication Performed a rapid injection of agitated mix of 9 cc saline and 1cc air to assess for atrial septal defect. MMode/2D Measurements & Calculations LVIDd: 4.0 cm IVSd: 1.1 cm LVOT diam: 2.1 cm LVIDs: 2.6 cm LVPWd: 1.2 cm RVDd: 3.2 cm FS: 33.6 % LVOT area: 3.5 cm2 asc Aorta Diam: 2.7 cm LAV(MOD-bp): 44.5 ml LVAd ap4: 20.0 cm2 LAV(MOD-bp) Indexed: 23.7 ml/m2 LVLd ap4: 7.2 cm LAV(MOD-sp2): 47.9 ml EDV(MOD-sp4): 45.8 ml LAV(MOD-sp4): 37.6 ml EDV(sp4-el): 47.1 ml LVAs ap4: 12.3 cm2 LVLs ap4: 5.9 cm ESV(MOD-sp4): 21.1 ml ESV(sp4-el): 21.7 ml EF(MOD-sp4): 53.9 % EF(sp4-el): 53.9 % LVAd ap2: 22.5 cm2 SV(MOD-sp4): 24.7 ml SV(MOD-sp2): 33.7 ml LVLd ap2: 7.4 cm EDV(MOD-sp2): 56.4 ml EDV(sp2-el): 57.9 ml LVAs ap2: 13.3 cm2 LVLs ap2: 6.7 cm ESV(MOD-sp2): 22.7 ml ESV(sp2-el): 22.6 ml EF(MOD-sp2): 59.8 % SV(sp4-el): 25.4 ml Ao sinus diam: 3.[address] Junction: 2.7 cm LA dimension(2D): 4.0 cm LA A4 area: 15.7 cm2 RA A4 area: 12.7 cm2 TAPSE: 1.8 cm Time Measurements MV dec time: 0.25 sec Doppler Measurements & Calculations MV E max nick: 62.5 cm/sec Lat Peak E' Nick: 6.0 cm/sec Med Peak E' Nick: 8.2 cm/sec MV A max nick: 82.9 cm/sec E/E' lat: 10.4 E/E' med: 7.6 MV E/A: 0.75 MV dec slope: 245.4 cm/sec2 Ao V2 max: 109.3 cm/sec LV V1 max: 98.9 cm/sec Ao max P.8 mmHg LV V1 max P.9 mmHg Ao V2 mean: 72.2 cm/sec LV V1 mean P.9 mmHg Ao mean P.4 mmHg LV V1 mean: 63.6 cm/sec Ao V2 VTI: 23.7 cm LV V1 VTI: 20.9 cm AV (velocity ratio): 0.88 RANDI(I,D): 3.1 cm2 RANDI(V,D): 3.2 cm2 SV(LVOT): 73.2 ml PA V2 max: 65.1 cm/sec PA max PG (full): 0.31 mmHg ECHO/Echo Complete Interpretation Summary Mild concentric left ventricular hypertrophy. The left ventricular ejection fraction is 65 %. Bubble contrast study is negative for PFO/ASD. Ordering Physician: Bonny Oliveira Referring Physician: Je Merchant Performed By: Jazmyn Singh RDCS
--- NOTE | 2024-05-17 15:31 | PCM.HP.STD ---
HPI - General General Date of Admission: 05/17/24 Date of Service: 05/17/24 Chief Complaint: Right eye visual changes HPI Narrative GERALD CENTENO, is a 58 F who presented to the emergency department at [facility] at the instruction of her parks and recreation worker due to right eye visual changes. She was last known well at 6 PM last evening at which time she took a nap and then woke up at about 7 PM and noticed that she had alteration in her vision in her right eye. She reported that it looked like a curtain around her pupil with partial lips and she feels like maybe her vision is a little bit better at this time. Given her visual changes she went to her parks and recreation worker office who sent her into the emergency department for concerns of stroke in her eye. She has no history of stroke, she does utilize tobacco and smokes about half a pack of cigarettes daily, she has no known history of hypertension or hyperlipidemia. She denies any other concomitant neurological changes. Vital signs on presentation showed a temperature of 98.3, heart rate 83, respiratory was 20, initial blood pressure was 194/140 with a repeat of 172/104, pulse ox was 96% on room air. Her CBC was unremarkable. Coags were normal. Chemistry panel was unremarkable. Patient is not hyperglycemic with a blood glucose level of 104. Liver functions are unremarkable. Troponin was less than 3. UA is insignificant. CTA of the head and neck showed no LVO or significant stenosis. CT of the brain did show an 8 mm lacunar infarct in the insular cortex of the left temporal lobe. In the emergency department she was evaluated by neurology and they did not recommend any TNKase due to her being outside the window for treatment. She was given aspirin and request for admission for stroke workup was made. FORMERLY [facility] Medical History GERD (gastroesophageal reflux disease) Ileocolitis Tobacco abuse Obesity (BMI 30.0-34.9) Home Medications ?Medication ?Instructions ?Recorded ?Last Taken ?Type L.acidoph, paracasei,B. lactis 10 1 tab PO DAILY supplement 10/29/18 10/28/18 History billion cell capsule capsicum (cayenne) 450 mg capsule 450 mg PO BID supplement 10/29/18 10/28/18 History garlic 1,000 mg capsule 1,000 mg PO BID supplement 10/29/18 10/28/18 History ciprofloxacin HCl 500 mg tablet 500 mg PO BID #14 tabs 09/14/20 Unknown Rx metronidazole 500 mg tablet 500 mg PO Q6H #40 tabs 09/14/20 Unknown Rx Allergy/AdvReac Type Severity Reaction Status Date / Time codeine Allergy Rash Verified 09/14/20 15:52 Penicillins Allergy Rash Verified 09/14/20 15:52 Family History (Updated 05/17/24 @ 16:[address] Bonny Oliveira DO) Other Hypertension no surgical history Social History (Updated 05/17/24 @ 16:[address] Bonny Oliveira DO) household members: family housing: house Smoking Status: Current every day smoker tobacco type: cigarettes alcohol intake: current alcohol intake frequency: a few times a month substance use type: does not use ROS Constitutional Constitutional: Denies anorexia, change in weight, chills, fatigue, fever(s), malaise, night sweats, weakness or other Eyes Eyes: Reports change in vision right and loss of vision; Denies blurry vision, change in eye color, discharge from eye(s), double vision, erythema, eye pain or other ENT HEENT: Denies abnormal hearing, dysphagia, ear pain, epistaxis, headache(s), hearing loss, nasal congestion, nasal discharge, post nasal drip, sinus pressure, sore throat or other Cardiovascular Cardiovascular: Denies chest pain, claudication, dyspnea on exertion, edema, lightheadedness, orthopnea, palpitations, paroxysmal nocturnal dyspnea, rapid heart rate, syncope or other Respiratory/Chest Respiratory/Chest: Denies cough, dyspnea, excessive phlegm production, hemoptysis, productive cough, shortness of breath at rest, shortness of breath with exertion, wheezing or other Gastrointestinal Gastrointestinal: Denies abdominal pain, coffee ground emesis, constipation, diarrhea, dyspepsia, hematemesis, hematochezia, loose stools, melena, nausea, vomiting or other Genitourinary Genitourinary: Denies burning urination, difficulty urinating, dysuria, hematuria, nocturia, urinary frequency, urinary hesitancy, urinary incontinence, urinary urgency or other Musculoskeletal Musculoskeletal: Denies arthralgias, back pain, joint pain, joint stiffness, joint swelling, myalgias, neck pain or other Neurologic Neurologic: Denies abnormal gait, abnormal speech, confusion, disequilibrium, dizziness, focal weakness, headache(s), numbness, paresthesias, seizure-like activity, seizures, syncope, tingling, tremor(s) or other Psychiatric Psychiatric: Denies anxiety, depression, homicidal ideation, suicidal ideation or other Endocrine Endocrinology: Denies change in body appearance, cold intolerance, excessive sweating, heat intolerance, polydipsia, polyuria or other Hematologic/Lymphatic Hematologic/Lymphatic: Denies anemia, easy bleeding, easy bruising, lymphadenopathy or other Allergic/Immunologic Allergic/Immunologic: Denies rhinitis, hives, eczemia, asthma or other Vital Signs Vital Signs Vital Signs: 05/17/24 12:58 05/17/24 13:18 Temperature 98.3 F Temperature Source Oral Pulse Rate 83 Respiratory Rate 20 H Blood Pressure 194/140 H 172/104 H Blood Pressure Mean 158 126 Pulse Ox 96 Oxygen Delivery Method Room Air Weight Weight: 85 kg Body Mass Index (BMI) 33.2 Physical Exam Const alert, oriented x3, no apparent distress, healthy appearing and well nourished Constitutional Narrative: Middle-aged, obese, white female, sitting in bed, appears comfortable, nontoxic General Appearance: cooperative HEENT normocephalic, head/scalp atraumatic, hearing grossly normal bilaterally and moist oral mucous membranes HEENT Narrative: Mallampati 2, no thrush Eyes EOMs intact bilaterally and conjunctivae normal Eyes Narrative: Pupils are currently not reactive much to light due to dilated eye exam at the elementary education tutor, no scleral icterus Neck no lymphadenopathy, supple, no JVD and no carotid bruits Neck Narrative: Trachea midline, no thyroid enlargement Resp normal respiratory effort, no retractions, no use of accessory muscles and clear to auscultation bilaterally Resp Narrative: Diminished but clear Auscultation: Negative for rales, rhonchi or wheezes Cardio regular rate, regular rhythm, S1 normal heart sound, S2 normal heart sound, no murmurs, no rub, no gallops and no clicks GI normal to inspection, nondistended, normoactive bowel sounds, soft to palpation and non-tender Extremity no clubbing, cyanosis or edema Extremity Narrative: Pedal pulses and radial pulses are 2+ Skin no jaundice, no petechiae and no mottling Neuro oriented x3, moves all extremities and no focal motor deficits Speech: speech normal Psych affect normal Psych Narrative: Very pleasant, interacts appropriately Results Lab / Micro Data 05/17/24 13:05 05/17/24 13:05 Labs: Laboratory Results - last 24 hr 05/17/24 13:05: WBC 9.0, RBC 4.45, Hgb 14.2, Hct 43.1, MCV 96.9, MCH 31.9, MCHC 32.9, RDW Std Deviation 47.2 H, RDW Coeff of Beena 13.2, Plt Count 244, MPV 10.2, Immature Gran % (Auto) 0.300, Neut % (Auto) 67.4, Lymph % (Auto) 25.8, [place] % (Auto) 4.7, Eos % (Auto) 1.1, Baso % (Auto) 0.7, Absolute Neuts (auto) 6.0, Absolute Lymphs (auto) 2.31, Nucleated RBC % 0, PT 12.4, INR 0.9, APTT 29.6, Sodium 143, Potassium 3.9, Chloride 109 H, Carbon Dioxide 26.0, Anion Gap 8, BUN 12, Creatinine 0.84, Estim Creat Clear Calc 75.42, Est GFR (MDRD) Af Amer 90, Est GFR (MDRD) Non-Af 74, BUN/Creatinine Ratio 14.3, Glucose 104, Calcium 9.3, Total Bilirubin 0.50, AST 13 L, ALT 15, Alkaline Phosphatase 99, Troponin I High Sens < 3 L, Total Protein 7.5, Albumin 3.4, Globulin 4.1, Albumin/Globulin Ratio 0.8 L 05/17/24 13:58: Urine Color Yellow, Urine Clarity Sl. Cloudy, Urine pH 6.0, Ur Specific [place] 1.025, Urine Protein 30 H, Urine Glucose (UA) Normal, Urine Ketones Negative, Urine Occult Blood Negative, Urine Nitrite Negative, Urine Bilirubin Negative, Urine Urobilinogen 1 H, Ur Leukocyte Esterase 25 H, Urine RBC 0 SEEN, Urine WBC 0-5 SEEN, Ur Squamous Epith Cells 0-5 SEEN, Urine Bacteria 2+, Urine Mucus 1+ Imaging Radiology Impression Head/Neck CTA 05/17/24 13:10 IMPRESSION: Normal CTA Head and neck with contrast. 8.2 mm the colon in the insular cortex of the left temporal Electronically Signed: Fady Schaffer MD at 14:18 EDT , Assessment & Plan Assessment/Plan (1) CVA (cerebral vascular accident): (2) Elevated blood pressure reading: (3) Sudden visual loss, right eye: PLAN: Plan Sudden visual loss right eye/lacunar infarct of the insular cortex on the left temporal lobe -Visual loss may be related to lacunar infarct -Check MRI -Check echocardiogram -Aspirin 81 mg daily -High intensity of statin at 80 mg daily -Check lipid -Check hemoglobin A1c -Will allow for permissive hypertension at this time however will likely need to initiate blood pressure lowering medication prior to discharge -Stroke order set utilized with [facility] as in BP medication per protocol -PT/OT consultation -Neuro consult Elevated blood pressure -Patient does not have formal diagnosis of hypertension -Patient states she has not been checking her blood pressure lately but she has never been elevated in the past -We did discuss that her optimal blood pressure would be less than 130/80 -Will allow for transient permissive hypertension -Highly suspect patient will need blood pressure medication prior to discharge Tobacco abuse -Highly recommend cessation and we did discuss this on admission -Patient denies current need for nicotine replacement therapy -States she currently smoking less than half a pack a day Severe seasonal allergies -Continue outpatient allergy injections after discharge Obesity -Recommend weight loss -BMI is 33.2 -Complicates treatment, prognosis, outcomes DVT prophylaxis -Lovenox 40 mg daily CODE STATUS -Full code Charges/Coding Visit Charges Inpatient E&M: 29849 Init Hosp L2
[2024-05-17 16:11] LABS: Hemoglobin A1c 5.4 % (3.8-5.6)
--- NOTE | 2024-05-17 17:13 | NURSING ---
MED SURG ETIENNE CENTRAL RETINAL ARTERY OCCLUSION, STROKE
[2024-05-17] MEDS: Atorvastatin Calcium 80 MG Tablet PO (20:32)
[2024-05-17] MEDS: Aspirin 81 MG TAB.CHEW PO (20:32)
[2024-05-17] MEDS: 0.9% Saline Lock 10 ML Syringe IV (20:33)
[2024-05-18 02:50] VITALS: BP 144/91; PULSE 77; RESP 16; TEMP 36.3; O2SAT 94
[2024-05-18 05:18] VITALS: BP 158/89; PULSE 70; RESP 14; TEMP 36.2; O2SAT 97
[2024-05-18 07:33] LABS: Absolute Lymphocyte Count 1.85 X10^3/uL (0.83-4.51); Absolute Neutrophil Count 4.2 X10^3/uL (2.0-7.7); Basophil# 0.06 X10^3/uL; Basophil% 0.9 % (0-1); Eosinophil# 0.14 X10^3/uL; Eosinophils% 2.1 % (0-5); Hematocrit 38.7 % (37-47); Hemoglobin 12.8 g/dL (12.0-15.0); Lymphocyte # 1.85 X10^3/ul (0.83-4.51); Lymphocyte % 28.1 % (19-41); Mean Corp Hgb Conc 33.1 g/dL (32-36); Mean Corpuscular Hgb 32.5 pg (27.0-32.0); Mean Corpuscular Volume 98.2 fL (81-99); Mean Platelet Vol. 9.9 fl (6.2-12.0); Monocyte# 0.33 X10^3/uL; NRBC Flagged by Analyzer 0 % (0-5); Neutrophil # 4.19 X10^3/uL (2.7-7.7); Neutrophil % 63.6 % (47-70); Platelet Count 221 K/mm3 (150-450); RBC Distribution Width CV 13.2 % (11.6-14.6); RBC Distribution Width SD 47.7 fl (35.1-43.9); Red Blood Count 3.94 M/mm3 (4.2-5.4); White Blood Count 6.6 K/mm3 (4.4-11.0)
[2024-05-18 08:04] VITALS: O2SAT 98
[2024-05-18 08:33] LABS: Phosphorus 3.4 mg/dL (2.5-4.9)
[2024-05-18 08:36] LABS: ALB/GLOB Ratio 0.9 RATIO (0.9-2.4); AST(SGOT) 13 U/L (15-37); Alanine Aminotransfer ALT/SGPT 11 U/L (13-56); Alkaline Phosphatase 78 U/L (45-117); Anion Gap 5 (5-15); BUN 9 mg/dL (7-18); BUN/Creat Ratio 13.7 RATIO (10-20); Calcium,Total 8.7 mg/dL (8.5-10.1); Chloride 112 mmol/L (98-107); Cholesterol 201 mg/dL (200); Creatinine, Serum 0.66 mg/dL (0.55-1.02); EST Glomerular Filtration Rate 98 mL/min (>60); Est Glom Filt Rate - Afr Amer 118 mL/min (>60); Estimated Creatinine Clearance 95.45 ml/min; Globulin 3.3 g/dL (2.2-4.2); Glucose 97 mg/dL (74-106); High Density Lipoprotein 55 mg/dL; Potassium 3.6 mmol/L (3.5-5.1); Protein, Total 6.3 g/dL (6.4-8.2); Sodium Level 140 mmol/L (136-145); Triglycerides 97 mg/dL; Very Low Density Lipoprotein 19 mg/dL (5-40)
[2024-05-18 08:45] VITALS: BP 170/100; PULSE 73; RESP 16; TEMP 36; O2SAT 95
--- NOTE | 2024-05-18 09:46 | NURSING ---
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
--- NOTE | 2024-05-18 10:25 | CASEMGMT ---
RN CM Face to Face with patient for initial transition planning/care coordination assessment. RN CM introduced self and role at [facility]. Patient lying in bed, alert and oriented. Patient willing to participate in assessment and is able to answer all questions appropriately. Care providers, pharmacy, and demographics verified. Strata: 2 PCP: None, list provided to patient Specialists: ANGELA Piedra Preferred Pharmacy: [facility] Insurance: [employer] Prescription Benefit: none Living Will/HPOA: none LNOK: Living Arrangements: Patient lives with in a 2 story home. Patient is independent and able to ambulate stairs. Transportation: self, DME/HHC: Patient denies DME in the home. No previous HHC or SNF. Patient wishes to discharge home, denies need for home health at this time. Patient states he has no further needs or concerns at this time. CM to follow for discharge planning needs that may arise. Disposition Plan: Patient to discharge home with family support and follow-up plans in place. Stephany HINOJOSA, RN, CM
--- NOTE | 2024-05-18 11:50 | NEURO.CONS ---
Assessment and Plan: Neuro Assessment/Plan GERALD CENTENO, is a 58 F with tobacco use who presents with partial vision loss of right eye. SHe took a nap on Wednesday evening and when she woke up she had a painless partial curtain only her right eye. This has never happened before. She went to see her eye doctor the next morning who said she had a stroke of the eye and sent her to the hospital. CT/CTA neg. MRI brain neg. Vision is improving. This appears to be a brao. LDL 127. A1c 5.4. Diagnosis: BRAO Plan: - ASA 81 - High intensity statin - Make sure echo is okay - 30d event monitor - No further recs, call us for any other questions or concerns. I personally attended this patient and spent a total time of 45minutes evaluating this patient including clinical assessment, review of chart, medical history imaging, and determining appropriate treatment and workup. HPI Consult Data Date of Consult: 05/18/24 HPI Narrative HPI Narrative: GERALD CENTENO, is a 58 F with tobacco use who presents with partial vision loss of right eye. SHe took a nap on Wednesday evening and when she woke up she had a painless partial curtain only her right eye. This has never happened before. She went to see her eye doctor the next morning who said she had a stroke of the eye and sent her to the hospital. CT/CTA neg. MRI brain neg. Vision is improving. This appears to be a brao. [facility]LY [facility] Medical History GERD (gastroesophageal reflux disease) Ileocolitis Tobacco abuse Obesity (BMI 30.0-34.9) Home Medications ?Medication ?Instructions ?Recorded ?Last Taken ?Type L.acidoph, paracasei,B. lactis 10 1 tab PO DAILY supplement 10/29/18 05/17/24 History billion cell capsule Allergy/AdvReac Type Severity Reaction Status Date / Time codeine Allergy Rash Verified 09/14/20 15:52 Penicillins Allergy Rash Verified 09/14/20 15:52 Family History (Updated 05/17/24 @ 16:[address] Bonny Oliveira, DO) Other Hypertension Surgical History no surgical history Social History (Updated 05/17/24 @ 16:[address] Bonny Oliveira, DO) household members: family housing: house Smoking Status: Current every day smoker tobacco type: cigarettes alcohol intake: current alcohol intake frequency: a few times a month substance use type: does not use Vital Signs Vital Signs Vital Signs: 05/17/24 12:58 05/17/24 13:18 05/17/24 15:00 Temperature 98.3 F Temperature Source Oral Pulse Rate 83 72 Respiratory Rate 20 H 14 Respiratory Effort Respiratory Depth Respiratory Pattern Blood Pressure 194/140 H 172/104 H 167/108 H Blood Pressure Mean 158 126 127 Blood Pressure Source Blood Pressure Position Blood Pressure Location Pulse Ox 96 98 Oxygen Delivery Method Room Air Room Air 05/17/24 17:00 05/17/24 18:33 05/17/24 18:50 Temperature 98 F 97.8 F Temperature Source Temporal Pulse Rate 69 81 70 Respiratory Rate 16 16 18 Respiratory Effort Respiratory Depth Respiratory Pattern Blood Pressure 168/129 H 161/105 H 146/131 H Blood Pressure Mean 142 123 136 Blood Pressure Source Monitor Blood Pressure Position Semi-Fowlers Blood Pressure Location Left Forearm Pulse Ox 98 98 99 Oxygen Delivery Method Room Air 05/17/24 20:13 05/17/24 20:19 05/17/24 22:50 Temperature 97.2 F L Temperature Source Temporal Pulse Rate 69 Respiratory Rate 16 Respiratory Effort Normal Non-Labored Respiratory Depth Normal Respiratory Pattern Normal Blood Pressure 149/95 H Blood Pressure Mean 113 Blood Pressure Source Monitor Blood Pressure Position Supine Blood Pressure Location Left Arm Pulse Ox 100 98 Oxygen Delivery Method Room Air Room Air Room Air 05/18/24 02:50 05/18/24 02:58 05/18/24 05:18 Temperature 97.4 F L 97.1 F L Temperature Source Temporal Temporal Pulse Rate 77 70 Respiratory Rate 16 14 Respiratory Effort Normal Non-Labored Respiratory Depth Normal Respiratory Pattern Normal Blood Pressure 144/91 H 158/89 H Blood Pressure Mean 108 112 Blood Pressure Source Monitor Monitor Blood Pressure Position Supine Supine Blood Pressure Location Left Arm Left Forearm Pulse Ox 94 97 Oxygen Delivery Method Room Air Room Air Room Air 05/18/24 08:04 05/18/24 08:39 05/18/24 08:45 Temperature 96.8 F L Temperature Source Temporal Pulse Rate 73 Respiratory Rate 16 Respiratory Effort Respiratory Depth Respiratory Pattern Blood Pressure 170/100 H Blood Pressure Mean 123 Blood Pressure Source Monitor Blood Pressure Position Blood Pressure Location Pulse Ox 98 95 Oxygen Delivery Method Room Air Room Air Room Air Weight Weight: 84.096 kg Body Mass Index (BMI) 32.8 EEG Results Procedure Details EEG Procedure Details: GERALD CENTENO is a 58 year old F with a past medical history of , who presents for evaluation of Electroencephalogram on DATE at TIME NIHSS NIHSS Nursing Documentation NIHSS Nursing Documentation: NIHSS: Ischemic Stroke/TIA Start: 05/17/24 18:50 Text: For PCU Patients: NIH and Neuro Check every 4 Status: Complete hours, PRN and with change in RN caregiver. Freq: [id number] Protocol: Activity Type Activity Date Activity User E-sign Co-sign Detail Recorded Client Recorded Date Recorded By Document 05/18/24 05:18 JMN 0 05/18/24 05:21 JMN 05/18/24 05:18 NIH Stroke Scale [NIHSS] A score of 0 is normal or asymptomatic . Total possible score is 42. Inpatient: RN or Physician to activate a stroke alert for onset of new stroke symptoms or with NIHSS increase >/= 3 points. Following change in neurological status, NIHSS will be performed per physician order or more frequently PRN. -1a. Level of Consciousness Alert; keenly responsive -1b. LOC Questions Answers BOTH questions correctly. -1c. LOC Commands Performs both tasks correctly . -2. Best Gaze Normal -3. Visual No visual loss -4. Facial Palsy Normal symmetrical movements -5a. Left Arm No drift; arm holds 90 (or 45 ) degrees for full 10 seconds -5b. Right Arm No drift; arm holds 90 (or 45 ) degrees for full 10 seconds -6a. Left Leg No drift; leg holds 30-degree position for full 5 seconds -6b. Right Leg No drift; leg holds 30-degree position for full 5 seconds -7. Limb Ataxia Absent -8. Sensory Normal; no sensory loss -9. Best Language No aphasia; normal -10. Dysarthria Normal -11. Extinction and Inattention No abnormality -Total 0 Query Text:A score of 0 is normal or asymptomatic. Total possible score is 42 . ED: Notify Physician for NIHSS increase by > / = 3 points. Inpatient: RN or Physician to activate a stroke alert for NIHSS increase of > / = 3 points. Coma Scale [Assess] -Eye Opening Spontaneous -Motor Obeys Commands -Verbal Oriented [Total] -Coma Scale Total 15 Physical Exam Narrative Physical Exam: - General: NAD, pleasant, cooperative, well nourished, well developed - Head/Eyes: Atraumatic, normocephalic, clear cornea, normal sclera/conjunctive - Neuro: ? Mental Status: AAOX4 & following simple commands. ? Speech: Clear and fluent with good repetition, comprehension, & naming. No aphasia or dysarthria ? CN II: Visual leone are full to confrontation. PERRL. ? CN III, IV, : EOMI, no gaze preference, no nystagmus, no ptosis ? CN V: Facial sensation is intact to light touch throughout. ? CN VII: Face is symmetric with normal eye closure and smile. ? CN VII: Hearing is grossly normal to conversational speech. ? CN IX, X: Palate elevates symmetrically and no uvula deviation ? CN XI: Head turning, and shoulder shrug are intact. ? CN XII: Tongue is midline with normal movements and no atrophy. ? Motor: Able to sustain all limbs ? Sensation: Normal to light touch bilaterally. ? Coordination: Normal FTN & HTS. No abn movements seen. Lab / Micro Data 05/18/24 07:18 05/18/24 07:18 Labs: Laboratory Results - last 24 hr 05/17/24 13:05: WBC 9.0, RBC 4.45, Hgb 14.2, Hct 43.1, MCV 96.9, MCH 31.9, MCHC 32.9, RDW Std Deviation 47.2 H, RDW Coeff of Beena 13.2, Plt Count 244, MPV 10.2, Immature Gran % (Auto) 0.300, Neut % (Auto) 67.4, Lymph % (Auto) 25.8, [place] % (Auto) 4.7, Eos % (Auto) 1.1, Baso % (Auto) 0.7, Absolute Neuts (auto) 6.0, Absolute Lymphs (auto) 2.31, Nucleated RBC % 0, PT 12.4, INR 0.9, APTT 29.6, Sodium 143, Potassium 3.9, Chloride 109 H, Carbon Dioxide 26.0, Anion Gap 8, BUN 12, Creatinine 0.84, Estim Creat Clear Calc 75.42, Est GFR (MDRD) Af Amer 90, Est GFR (MDRD) Non-Af 74, BUN/Creatinine Ratio 14.3, Glucose 104, Hemoglobin A1c 5.4, Calcium 9.3, Total Bilirubin 0.50, AST 13 L, ALT 15, Alkaline Phosphatase 99, Troponin I High Sens < 3 L, Total Protein 7.5, Albumin 3.4, Globulin 4.1, Albumin/Globulin Ratio 0.8 L 05/17/24 13:58: Urine Color Yellow, Urine Clarity Sl. Cloudy, Urine pH 6.0, Ur Specific [place] 1.025, Urine Protein 30 H, Urine Glucose (UA) Normal, Urine Ketones Negative, Urine Occult Blood Negative, Urine Nitrite Negative, Urine Bilirubin Negative, Urine Urobilinogen 1 H, Ur Leukocyte Esterase 25 H, Urine RBC 0 SEEN, Urine WBC 0-5 SEEN, Ur Squamous Epith Cells 0-5 SEEN, Urine Bacteria 2+, Urine Mucus 1+ 05/18/24 07:18: WBC 6.6, RBC 3.94 L, Hgb 12.8, Hct 38.7, MCV 98.2, MCH 32.5 H, MCHC 33.1, RDW Std Deviation 47.7 H, RDW Coeff of Beena 13.2, Plt Count 221, MPV 9.9, Immature Gran % (Auto) 0.300, Neut % (Auto) 63.6, Lymph % (Auto) 28.1, [place] % (Auto) 5.0, Eos % (Auto) 2.1, Baso % (Auto) 0.9, Absolute Neuts (auto) 4.2, Absolute Lymphs (auto) 1.85, Nucleated RBC % 0, Sodium 140, Potassium 3.6, Chloride 112 H, Carbon Dioxide 23.0, Anion Gap 5, BUN 9, Creatinine 0.66, Estim Creat Clear Calc 95.45, Est GFR (MDRD) Af Amer 118, Est GFR (MDRD) Non-Af 98, BUN/Creatinine Ratio 13.7, Glucose 97, Calcium 8.7, Phosphorus 3.4, Magnesium 2.0, Total Bilirubin 0.60, AST 13 L, ALT 11 L, Alkaline Phosphatase 78, Total Protein 6.3 L, Albumin 3.0 L, Globulin 3.3, Albumin/Globulin Ratio 0.9, Triglycerides 97, Cholesterol 201 H, LDL Cholesterol 127, VLDL Cholesterol 19, HDL Cholesterol 55 Imaging Radiology Impression Head/Neck CTA 05/17/24 13:10 IMPRESSION: Normal CTA Head and neck with contrast. 8.2 mm the colon in the insular cortex of the left temporal Electronically Signed: Fady Schaffer MD at 14:18 EDT , ADDENDUM: 05/17/24 1535 IMPRESSION: 8.2 mm lacunar infarct in the insular cortex of the left temporal lobe. Electronically Signed: Fady Schaffer MD at 15:28 EDT , Brain MRI 05/17/24 15:30 IMPRESSION: Minimal white matter changes. No evidence for acute infarct or other significant abnormality Electronically Signed: Vince Villarreal MD at 19:41 EDT , Active Medications Active Medications Active Medications: Current Medications Generic Name Dose Route Start Last Admin Trade Name Freq PRN Reason Stop Dose Admin Acetaminophen 650 mg 05/17/24 18:50 Acetaminophen 325 Mg Tablet PO Q4H PRN PRN Pain 1-10 Or Fever>99.6 Albuterol Sulfate 2.5 mg 05/17/24 18:50 Albuterol 2.5 Mg/3 Ml Vial.Neb. INHALATION Q2H PRN PRN SOB &/OR WHEEZING Atorvastatin Calcium 80 mg 05/17/24 22:00 05/17/24 20:32 Atorvastatin Calcium 80 Mg Tablet PO 80 mg QHS ELENA Administration Enoxaparin Sodium 40 mg 05/18/24 10:00 05/18/24 10:09 Enoxaparin 40 Mg/0.4 Ml Syringe SC Not Given DAILY ELENA Hydralazine HCl 5 mg 05/17/24 18:50 Hydralazine 20 Mg/Ml Vial IV 05/18/24 18:50 Q30M PRN maintain BP parameters with HR <60 Labetalol HCl 10 - 20 mg 05/17/24 18:50 Labetalol (Prefilled) 20 Mg/4 Ml IV 05/18/24 18:50 Q10M PRN PRN maintain BP parameters with HR >/=60 Melatonin 3 mg 05/17/24 18:50 Melatonin 3 Mg Tablet PO QHS PRN PRN INSOMNIA Senna/Docusate Sodium 2 tablet 05/17/24 18:50 Senna/Docusate Sodium 1 Tablet PO BID PRN PRN Constipation Sodium Chloride 10 - 40 ml 05/17/24 19:01 05/17/24 20:33 0.9% Saline Lock 10 Ml Syringe IV 10 ml UD PRN Administration SALINE FLUSH
[2024-05-18 14:44] VITALS: BP 139/98; PULSE 75; RESP 18; TEMP 36.8; O2SAT 97
--- NOTE | 2024-05-18 15:02 | PCM.DC ---
Discharge Instructions Diet Discharge Diet: Low fat / Low cholesterol Activity Discharge Activity: Return to Normal Activity Dressing / Incision Call your doctor if you observe: Fever of 101 or Higher, Shortness of breath, Dizziness, Swelling in the ankles and Chest pain Follow Up Care Test Results: Test results from this visit will be discussed in further detail at your follow-up appointment, if applicable. Discharge Plan Admission Admit Date/Time: 05/17/24 15:22 Primary Reason for Your Visit: probable TIA Attending Provider: Yolette Hart Primary Care Provider: Care Physician,No Primary Consulting Providers: John Kearney; Mandy Stovall; Yris Duron; Vero Xavier; Magui Yee; Salvador Bruno; Sulema Reyes; Kirby Yeager; Sergio Angelo; Francis Pérez; Aliza Zamorano; Valdez Shukla; Vinaney Barrett; Fabiola Diaz; Derrick Del Rosario; Raji Dickson; Odalys Mackey; Miquel Sorenson; Alessia Oliveira; Daniella Evans; Bonny Oliveira Instructions Patient Instructions: TIA Dc Discharge Orders/Prescriptions Prescriptions: New aspirin 81 mg tablet,delayed release (/EC) 81 mg PO DAILY Qty: 30 2RF atorvastatin 40 mg tablet 40 mg PO QHS Qty: 30 2RF amlodipine 10 mg tablet 10 mg PO DAILY Qty: 30 2RF lisinopril 20 mg tablet 20 mg PO DAILY Qty: 30 2RF No Action L.acidoph, paracasei,B. lactis 1 EACH capsule 1 tab PO DAILY Other Ambulatory Orders: 30 Day Event Recorder Preventi (Urgent) Timeframe: 1 Day Facility: [facility] - Location: Cardiovascular Services Ordered By: Dr. Yolette Hart Referrals / Follow Up: Ryan Tariq MD [Med Staff - Active Staff] - Within 1 Month (see to establish PCP care) Care Physician,No Primary [Primary Care Provider] - Disposition Disposition (needs filled in before D/C Order can be placed): Home, Self Care
--- NOTE | 2024-05-18 15:03 | PCM.DC.SUM ---
Providers Date of Admission: 05/17/24 Date of Discharge: 05/18/24 Primary Care Physician: Bonny Primary Care Phys Consultations 05/17/24 18:50 Consult: Tele-Neurology Routine Consulting Provider: [facility] Reason for Consult: Acute Ischemic Stroke/TIA EMERGENT Consult: No MD Notified: Yes Date Notified: 05/17/24 Time Notified: 18:57 Method of Notification: Answering Service Nursing Unit Staff Notify [facility] of Tele-Neurology Consult: Yes Reason For Visit: STROKE Diagnosis Discharge Diagnosis (1) CVA (cerebral vascular accident): Status: Acute Code(s): I63.9 - Cerebral infarction, unspecified (2) Elevated blood pressure reading: Status: Acute Code(s): R03.0 - Elevated blood-pressure reading, without diagnosis of hypertension (3) Sudden visual loss, right eye: Status: Acute Code(s): H53.131 - Sudden visual loss, right eye Medications at Discharge Home Medications L.acidoph, paracasei,B. lactis 10 billion cell capsule 1 tab PO DAILY supplement 10/29/18 amlodipine 10 mg tablet 10 mg PO DAILY #30 tabs 05/18/24 aspirin 81 mg tablet,delayed release 81 mg PO DAILY #30 tabs 05/18/24 atorvastatin 40 mg tablet 40 mg PO QHS #30 tabs 05/18/24 lisinopril 20 mg tablet 20 mg PO DAILY #30 tabs 05/18/24 Hospital Course Operations None Procedures 2-D Echocardiogram Summary of Care Provided Minutes Spent on Discharge: 47 Hospital Course: Patient is a 58 y/o female with a PMH as outlined who was admitted via the ED on 05/17/2024 with a complaint of right eye visual changes. She had 1 see her jewelry coater due to right eye visual changes. She says she was well until the night before admission when she took a nap. She woke up about an hour later at 7 PM and felt like a curtain had come over her right eye. She felt her vision subsequently did improve a bit. She came in to the ED after going to her jewelry coater who sent her to the ED due to concerns about stroke in her eye. She admitted to smoking but denied any history of high blood pressure or hyperlipidemia. She had no associated neurological changes. Review of systems was otherwise negative. She was noted to have elevated blood pressure. CT of the brain showed an 8mm lacunar infarct in the insular cortex of the left temporal lobe. CTA head and neck showed no hemodynamically significant stenosis. She was admitted to rule out a stroke. She did have MRI of the brain which showed no evidence of a stroke.Neurology was consulted. She had 2D echo which showed EF of 65% and normal LV size, with mild LV hypertrophy and bubble study was negative. Neurology reviewed patient and recommended that she be started on aspirin and high intensity statin. A1c was not elevated at 5.4. She was also to be discharged with a 30-day event monitor. 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 She was discharged home on 05/18/2024. She is follow-up with her primary care doctor within 1 to 2 weeks and also follow-up with jewelry coater. She was given a prescription for p.o. aspirin 81 mg daily as well as p.o. atorvastatin 40 mg daily. Of note her blood pressure had been elevated during her admission and so she was diagnosed with hypertension and started on p.o. amlodipine 10 mg daily and p.o. lisinopril 20 mg daily. She was given prescription for both. She is to keep a blood pressure log at home and to follow-up with her PCP for BP medication adjustment as needed. Patient seen and examined prior to discharge. She had no complaints and had an uneventful night. Review of systems otherwise negative. Labs and vitals reviewed. Home medication reviewed and reconciled. She also discharged home with a 30-day event monitor. She was referred to [facility] to establish PCP care. Physical Exam Const alert, oriented x3 and no apparent distress General Appearance: cooperative, comfortable and well kempt Orientation / Consciousness: awake Exam Limitations: no limitations HEENT normocephalic, head/scalp atraumatic, moist oral mucous membranes and oropharynx normal Mouth: oral and palatal mucosa normal Eyes PERRL, EOMs intact bilaterally and conjunctivae normal Neck no lymphadenopathy and supple Resp normal respiratory effort, no retractions, no use of accessory muscles and clear to auscultation bilaterally Cardio regular rate, regular rhythm, S1 normal heart sound, S2 normal heart sound and no murmurs GI normal to inspection, nondistended, normoactive bowel sounds, soft to palpation, non-tender and non-distended Extremity normal to inspection, full ROM and no clubbing, cyanosis or edema Skin no rashes or lesions noted, no wounds and skin turgor normal Neuro oriented x3, CN's II-XII intact bilaterally, moves all extremities, no focal motor deficits and no sensory deficits noted Sensorium / Orientation: awake and alert Motor Exam: strength 5/5 throughout Psych affect normal Weight / BMI Weight Weight: 185 lb 3.013 oz Body Mass Index (BMI) 32.8 ABG / Lab / Microbiology Data 05/18/24 07:18 05/18/24 07:18 Laboratory: Laboratory Results - last 24 hr 05/17/24 13:05: Hemoglobin A1c 5.4 05/18/24 07:18: WBC 6.6, RBC 3.94 L, Hgb 12.8, Hct 38.7, MCV 98.2, MCH 32.5 H, MCHC 33.1, RDW Std Deviation 47.7 H, RDW Coeff of Beena 13.2, Plt Count 221, MPV 9.9, Immature Gran % (Auto) 0.300, Neut % (Auto) 63.6, Lymph % (Auto) 28.1, [place] % (Auto) 5.0, Eos % (Auto) 2.1, Baso % (Auto) 0.9, Absolute Neuts (auto) 4.2, Absolute Lymphs (auto) 1.85, Nucleated RBC % 0, Sodium 140, Potassium 3.6, Chloride 112 H, Carbon Dioxide 23.0, Anion Gap 5, BUN 9, Creatinine 0.66, Estim Creat Clear Calc 95.45, Est GFR (MDRD) Af Amer 118, Est GFR (MDRD) Non-Af 98, BUN/Creatinine Ratio 13.7, Glucose 97, Calcium 8.7, Phosphorus 3.4, Magnesium 2.0, Total Bilirubin 0.60, AST 13 L, ALT 11 L, Alkaline Phosphatase 78, Total Protein 6.3 L, Albumin 3.0 L, Globulin 3.3, Albumin/Globulin Ratio 0.9, Triglycerides 97, Cholesterol 201 H, LDL Cholesterol 127, VLDL Cholesterol 19, HDL Cholesterol 55 Radiography Diagnostic Testing: Radiology Impression Head/Neck CTA 05/17/24 13:10 IMPRESSION: Normal CTA Head and neck with contrast. 8.2 mm the colon in the insular cortex of the left temporal Electronically Signed: Fady Schaffer MD at 14:18 EDT , ADDENDUM: 05/17/24 1535 IMPRESSION: 8.2 mm lacunar infarct in the insular cortex of the left temporal lobe. Electronically Signed: Fady Schaffer MD at 15:28 EDT , Brain MRI 05/17/24 15:30 IMPRESSION: Minimal white matter changes. No evidence for acute infarct or other significant abnormality Electronically Signed: Vince Villarreal MD at 19:41 EDT , Echocardiogram 05/17/24 15:30 Interpretation Summary Mild concentric left ventricular hypertrophy. The left ventricular ejection fraction is 65 %. Bubble contrast study is negative for PFO/ASD. Ordering Physician: Bonny Oliveira Referring Physician: Je Merchant Performed By: Jazmyn Singh RDCS D/C Instructions Discharge Diet: Low fat / Low cholesterol Discharge Activity: Return to Normal Activity Call your doctor if you observe: Fever of 101 or Higher, Shortness of breath, Dizziness, Swelling in the ankles and Chest pain Meaningful Use Info Meaningful Use Meaningful Use Diagnoses (Choose all that apply): None applicable Ischemic Stroke Statin Dosing Therapy Reference: STATIN DOSE THERAPY REFERENCE: * Patients > 75 years receive moderate or high dose statin therapy. * Patients 75 years or YOUNGER should receive HIGH intensity statin dose unless contraindicated. You will be required to document reason for non-treatment if statin daily dose does not meet guidelines. HIGH DOSE STATIN THERAPY DAILY Atorvastatin > than or = to 40 mg Rosuvastatin > than or = to 20 mg Amlodipine + Atorvastatin > than or = to 2.5/40 mg Ezetimibe + Simvastatin 10/80 mg Simvastatin 80mg Discharge Plan Admission Admit Date/Time: 05/17/24 15:22 Primary Reason for Your Visit: probable TIA, branch retinal artery occlusion Attending Provider: Yolette Hart Primary Care Provider: Care Physician,No Primary Consulting Providers: John Kearney; Mandy Stovall; Yris Duron; Vero Xavier; Magui Yee; Salvador Bruno; Sulema Reyes; Kirby Yeager; Sergio Angelo; Francis Pérez; Aliza Zamorano; Valdez Shukla; Vianney Barrett; Fabiola Diaz; Derrick Del Rosario; Raji Dickson; Odalys Mackey; Miquel Sorenson; Alessia Oliveira; Daniella Evans; Bonny Oliveira Instructions Patient Instructions: TIA Dc Discharge Orders/Prescriptions Prescriptions: New aspirin 81 mg tablet,delayed release (DR/EC) 81 mg PO DAILY Qty: 30 2RF atorvastatin 40 mg tablet 40 mg PO QHS Qty: 30 2RF amlodipine 10 mg tablet 10 mg PO DAILY Qty: 30 2RF lisinopril 20 mg tablet 20 mg PO DAILY Qty: 30 2RF No Action L.acidoph, paracasei,B. lactis 1 EACH capsule 1 tab PO DAILY Other Ambulatory Orders: 30 Day Event Recorder Preventi (Urgent) Timeframe: 1 Day Facility: [facility] - Location: Cardiovascular Services Ordered By: Dr. Yolette Hart Referrals / Follow Up: Ryan Tariq MD [Med Staff - Active Staff] - Within 1 Month (see to establish PCP care) Care Physician,No Primary [Primary Care Provider] - Disposition Disposition (needs filled in before D/C Order can be placed): Home, Self Care Charges/Coding Visit Charges Inpatient E&M: 52730 Disch Hosp >30min
--- NOTE | 2024-05-18 15:35 | CASEMGMT ---
SW did not complete a PHQ 9 as per Neurology patient did not have a Stroke. Jennifer Kingsley CREW PERSON YVES
--- NOTE | 2024-05-18 16:10 | CASEMGMT ---
Patient has order for discharge. RN CM in to discuss needs at discharge. Patient denies needs or help at discharge. Patient had no further questions or concerns.
== END 2024-05-18 16:37 | disposition home or self-care (01) | DRG 125 ==
LOC: ED 13:46 → PCU 18:15
PROVIDERS: Admitting Provider Internal Medicine; Emergency Provider Emergency Medicine; Referring Provider Emergency Medicine; Visit Provider Student in an Organized Health Care Education/Training Program
DX: H34.231 Retinal artery branch occlusion, right eye (principal); E66.9 Obesity, unspecified; I10 Essential (primary) hypertension; F17.210 Nicotine dependence, cigarettes, uncomplicated; Z68.33 Body mass index [BMI] 33.0-33.9, adult
CPT/HCPCS: 36415; 70496; 70498; 70551; 80053; 80061; 81001; 83036; 83735; 84100; 84484; 85025; 85610; 85730; 93005; 93306; 94668; 94762; 97802; 99252; 99284; 99406; J7030; Q9957; Q9967; A4216; G0463

== ENCOUNTER 2024-08-03 15:17 | Emergency (ER) | payer SELFPAY ==
[2024-08-03 15:18] VITALS: BP 145/113; PULSE 106; RESP 18; TEMP 36.3; O2SAT 100; BMI 32.9
--- NOTE | 2024-08-03 15:40 | CT_ITS ---
EXAM: CT ABDOMEN AND PELVIS WITH INTRAVENOUS CONTRAST CLINICAL INDICATION: left abd pain TECHNIQUE: Helically acquired images were obtained of the abdomen and pelvis with intravenous contrast. This CT exam was performed using one or more of the following dose reduction techniques: automated exposure control, adjustment of the mA and/or kV according to patient size, and/or use of iterative reconstruction technique. CONTRAST: IV 100mL [id number]-370 COMPARISON: 09/14/2020 FINDINGS: LOWER THORAX: Unremarkable. Lung bases are clear. No cardiomegaly. No significant pericardial effusion. ABDOMEN: LIVER: There are fluid density structures in the liver compatible with simple cysts which are stable from the reference exam. GALLBLADDER AND BILE DUCTS: Unremarkable. No calcified gallstones. No gallbladder distention or wall edema. No intra- or extrahepatic biliary ductal dilation. PANCREAS: Unremarkable. No focal cystic or solid mass. SPLEEN: Unremarkable. Normal size without focal cystic or solid mass. ADRENALS: Unremarkable. No nodules. KIDNEYS AND URETERS: Unremarkable. Normal renal size and position. No hydronephrosis. STOMACH AND BOWEL: There are diverticula seen on the descending and sigmoid colon. There is inflammation and wall thickening surrounding the mid descending colon compatible with acute diverticulitis. There is no abscess or perforation identified. No stomach or bowel distention. PELVIS: APPENDIX: No evidence of acute appendicitis. BLADDER: Unremarkable. REPRODUCTIVE: Unremarkable as visualized. No mass. ABDOMEN and PELVIS: INTRAPERITONEAL SPACE: Unremarkable. No ascites or other fluid collection. No free air. BONES/JOINTS: Unremarkable. No suspicious lytic or blastic abnormality. SOFT TISSUES: Unremarkable. No discrete abdominal or pelvic wall hernia. VASCULATURE: Unremarkable. Abdominal aorta is non-dilated. LYMPH NODES: Unremarkable. No enlarged lymph nodes. CT/Abdomen/Pelvis W IV Cont ONLY IMPRESSION: Diverticula of the descending and sigmoid colon with inflammation surrounding the mid descending colon compatible with acute diverticulitis. There is no abscess or perforation. Electronically Signed: Yoseph Barry MD at 17:30 EST ,
--- NOTE | 2024-08-03 15:43 | ED.VIS.GI ---
HPI HPI - GI History of Present Illness Chief Complaint: Abd Pain Informant: patient Narrative Narrative: 3-day history nontraumatic left side abdominal pain. No fever or chills. Today had intermittent nausea. No vomiting. Normal bowel movements nonbloody. History of diverticulitis 1 other time feels kind of similar per patient. She is had C. difficile in 2018 prior to her diverticulitis. She has had appendectomy 2008. Denies urinary symptoms. Denies diarrhea. Pain worse with movement. Prior similar symptoms: Yes PFSH PFSH Medical History Sudden visual loss, right eye Elevated blood pressure reading Central retinal artery occlusion CVA (cerebral vascular accident) GERD (gastroesophageal reflux disease) Ileocolitis Tobacco abuse Obesity (BMI 30.0-34.9) Home Medications ?Medication ?Instructions ?Recorded ?Last Taken ?Type L.acidoph, paracasei,B. lactis 10 1 tab PO DAILY supplement 10/29/18 05/17/24 History billion cell capsule amlodipine 10 mg tablet 10 mg PO DAILY #30 tabs 05/18/24 Unknown Rx aspirin 81 mg tablet,delayed 81 mg PO DAILY #30 tabs 05/18/24 Unknown Rx release atorvastatin 40 mg tablet 40 mg PO QHS #30 tabs 05/18/24 Unknown Rx lisinopril 20 mg tablet 20 mg PO DAILY #30 tabs 05/18/24 Unknown Rx cefdinir 300 mg capsule 300 mg PO Q12H #14 caps 08/03/24 Unknown Rx metronidazole 500 mg tablet 500 mg PO TID #20 tabs 08/03/24 Unknown Rx oxycodone-acetaminophen 5 mg-325 1 tab PO Q6H PRN PRN Pain 3 days 08/03/24 Unknown Rx mg tablet #12 TABLETS Allergy/AdvReac Type Severity Reaction Status Date / Time codeine Allergy Rash Verified 08/03/24 15:17 Penicillins Allergy Rash Verified 08/03/24 15:17 Family History Other Hypertension Social History household members: family housing: house Smoking Status: Current every day smoker tobacco type: cigarettes alcohol intake: current alcohol intake frequency: a few times a month substance use type: does not use ROS ROS ED Constitutional Constitutional ED: Denies chills, fever(s) or sweats Eyes Eyes: Denies change in vision ENT ENT ED: Denies dysphagia or sore throat Cardiovascular Cardiovascular: Denies chest pain, leg edema, palpitations or racing heartbeat Respiratory/Chest Respiratory/Chest: Denies cough, dyspnea or dyspnea on exertion Gastrointestinal Gastrointestinal: Reports abdominal pain; Denies diarrhea, nausea or vomiting Genitourinary Genitourinary ED: Denies dysuria, hematuria or urinary frequency Musculoskeletal Musculoskeletal: Denies back pain, extremity pain or neck pain Integumentary Denies rash or wounds Neurologic Neurologic: Denies headache(s), paresthesias or weakness EXAM Physical Exam Const Vital Signs: 08/03/24 15:18 08/03/24 17:15 08/03/24 18:19 Temperature 97.3 F L Temperature Source Temporal Pulse Rate 106 H 77 82 Respiratory Rate 18 18 18 Blood Pressure 145/113 H 141/125 H Blood Pressure Mean 123 130 Pulse Ox 100 96 96 Oxygen Delivery Method Room Air Positive well nourished and well developed General Appearance ED: well developed and NAD HEENT Reports moist mucous membranes normocephalic and atraumatic Eyes EOMs intact bilaterally and conjunctivae normal General Eye ED: Yes normal appearance of both eyes Neck no lymphadenopathy and supple General: Negative for tenderness Chest Wall Chest: Negative for tenderness Resp normal respiratory effort and normal air movement Effort and Inspection: symmetric chest movement; Negative for respiratory distress Cardio regular rhythm and no murmurs Rate: tachycardic Peripheral Pulses: pulses 2+ throughout GI normal to inspection, nondistended, normoactive bowel sounds GI Narrative: Mild tenderness left side abdomen no pain left lower quadrant. Negative Cox's or McBurney's tenderness. No guarding or rebound. Palpation: Negative for guarding or rebound tenderness present Back/Spine no CVA tenderness and no thoracic nor lumbar tenderness Extremity normal to inspection General Extremety ED: Negative for edema or tenderness General Extremity: Negative for edema Neuro oriented x3 and no sensory deficits noted Sensorium / Orientation: awake and alert Skin no rashes or lesions noted and no wounds MDM MDM MDM Narrative Medical decision making narrative: Interventions / MDM: Differential diagnosis: Diverticulitis Diagnosis considered but do not suspect: Kidney stone however CT negative My EKG interpretation: N/A Imaging independently reviewed and interpreted by myself: CT abdomen pelvis IV contrast: Descending colon diverticulitis, no abscess or perforations. Also read by radiology. External documents reviewed: N/A Test considered but not ordered:N/A ED course: Patient tender left side abdomen. No fevers. No bloody stools. No urinary symptoms. Abdominal labs ordered urine ordered. IV Toradol as she did not want any strong pain medications. CT scan ordered further evaluation. Labs white count 11.9 normal liver enzymes normal kidney function. Urine had leukocytes 3+ bacteria. CT scan positive for descending colon diverticulitis without any complications. Reevaluation symptoms improving soft abdomen. Patient started on cefdinir and Flagyl. She will avoid alcohol. Short prescription for Percocet in case she needs it. Return precaution discussed with the patient otherwise outpatient follow-up given. All questions were answered. Re-evaluation: stable Disposition discussed with patient/family/significant other: Patient Case discussed with consulting clinician: N/A This note was generated with [employer] dictation software. It may contain incorrect words, spelling, and punctuation that were not noted in checking the note before signing. Lab Data Attestation: I reviewed the patient's lab results. Labs: Laboratory Results - last 24 hr 08/03/24 08/03/24 15:35 16:01 WBC 11.9 H RBC 4.56 Hgb 14.5 Hct 43.8 MCV 96.1 MCH 31.8 MCHC 33.1 RDW Std Deviation 46.6 H RDW Coeff of Beena 13.2 Plt Count 244 MPV 10.5 Immature Gran % (Auto) 0.300 Neut % (Auto) 78.1 H Lymph % (Auto) 14.5 L [place] % (Auto) 5.7 Eos % (Auto) 0.9 Baso % (Auto) 0.5 Absolute Neuts (auto) 9.3 H Absolute Lymphs (auto) 1.73 Nucleated RBC % 0 Sodium 140 Potassium 4.0 Chloride 111 H Carbon Dioxide 23.0 Anion Gap 6 BUN 18 Creatinine 1.09 H Estim Creat Clear Calc 57.86 Est GFR (MDRD) Af Amer 66 Est GFR (MDRD) Non-Af 55 L BUN/Creatinine Ratio 16.5 Glucose 96 Calcium 9.6 Total Bilirubin 0.60 AST 14 L ALT 14 Alkaline Phosphatase 101 Total Protein 7.9 Albumin 3.8 Globulin 4.1 Albumin/Globulin Ratio 0.9 Lipase 26 Urine Color Yellow Urine Clarity Clear Urine pH 5.0 Ur Specific [place] 1.020 Urine Protein 30 H Urine Glucose (UA) Normal Urine Ketones Negative Urine Occult Blood Negative Urine Nitrite Negative Urine Bilirubin Negative Urine Urobilinogen 1 H Ur Leukocyte Esterase 25 H Urine RBC 0-5 SEEN Urine WBC 25-50 SEEN Ur Squamous Epith Cells 0-5 SEEN Urine Bacteria 3+ Hyaline Casts 0-5 SEEN Fine Granular Casts 0-5 SEEN Urine Mucus 2+ Radiography Diagnostic Testing: Clinical Impression(s) from Imaging Studies Abdomen/Pelvis CT 08/03/24 15:40 IMPRESSION: Diverticula of the descending and sigmoid colon with inflammation surrounding the mid descending colon compatible with acute diverticulitis. There is no abscess or perforation. Electronically Signed: Yoseph Barry MD at 17:30 EST , Discharge Plan Triage Chief Complaint: Abd Pain ED Provider: Perico Gallardo Dx/Rx/DC Orders Clinical Impression: Acute diverticulitis, Abdominal pain Instructions: Diverticulitis Dc Prescriptions: New oxycodone-acetaminophen 5-325 mg tablet 1 tab PO Q6H PRN PRN (Reason: Pain) 3 Days Qty: 12 0RF cefdinir 300 mg capsule 300 mg PO Q12H Qty: 14 0RF metronidazole 500 mg tablet 500 mg PO TID Qty: 20 0RF No Action L.acidoph, paracasei,B. lactis 1 EACH capsule 1 tab PO DAILY aspirin 81 mg tablet,delayed release (DR/EC) 81 mg PO DAILY Qty: 30 2RF atorvastatin 40 mg tablet 40 mg PO QHS Qty: 30 2RF amlodipine 10 mg tablet 10 mg PO DAILY Qty: 30 2RF lisinopril 20 mg tablet 20 mg PO DAILY Qty: 30 2RF Primary Care Provider: Care Physician,No Primary Referrals: Modesto Ko DO [Med Staff - Active Staff] - 1-2 Weeks Yusuf Griffith MD [Med Staff - Active Staff] - 1-2 Weeks Care Physician,No Primary [Primary Care Provider] - Activity Restrictions/Additional Instructions: Descending colon diverticulitis. Take antibiotic as prescribed. Pain medicine as needed. If develop worsening symptoms not controlled medications return to ED for reevaluation. With recurrent symptoms follow-up with GI and general surgery for outpatient evaluation. Print Language: Macedonian Disposition Disposition: Home, Self Care Discharge Date/Time: 08/03/24 18:26
[2024-08-03] MEDS: Ketorolac 15 MG/ML Vial IV (15:53)
[2024-08-03 16:06] LABS: Absolute Lymphocyte Count 1.73 X10^3/uL (0.83-4.51); Absolute Neutrophil Count 9.3 X10^3/uL (2.0-7.7); Basophil# 0.06 X10^3/uL; Basophil% 0.5 % (0-1); Eosinophil# 0.11 X10^3/uL; Eosinophils% 0.9 % (0-5); Hematocrit 43.8 % (37-47); Hemoglobin 14.5 g/dL (12.0-15.0); Lymphocyte # 1.73 X10^3/ul (0.83-4.51); Lymphocyte % 14.5 % (19-41); Mean Corp Hgb Conc 33.1 g/dL (32-36); Mean Corpuscular Hgb 31.8 pg (27.0-32.0); Mean Corpuscular Volume 96.1 fL (81-99); Mean Platelet Vol. 10.5 fl (6.2-12.0); Monocyte# 0.68 X10^3/uL; Monocyte% 5.7 % (0-10); NRBC Flagged by Analyzer 0 % (0-5); Neutrophil # 9.32 X10^3/uL (2.7-7.7); Neutrophil % 78.1 % (47-70); Platelet Count 244 K/mm3 (150-450); RBC Distribution Width CV 13.2 % (11.6-14.6); RBC Distribution Width SD 46.6 fl (35.1-43.9); Red Blood Count 4.56 M/mm3 (4.2-5.4); White Blood Count 11.9 K/mm3 (4.4-11.0)
[2024-08-03 16:13] LABS: ALB/GLOB Ratio 0.9 RATIO (0.9-2.4); AST(SGOT) 14 U/L (15-37); Alanine Aminotransfer ALT/SGPT 14 U/L (13-56); Albumin, Serum 3.8 g/dL (3.2-5.0); Alkaline Phosphatase 101 U/L (45-117); Anion Gap 6 (5-15); BUN 18 mg/dL (7-18); BUN/Creat Ratio 16.5 RATIO (10-20); Calcium,Total 9.6 mg/dL (8.5-10.1); Chloride 111 mmol/L (98-107); Creatinine, Serum 1.09 mg/dL (0.55-1.02); EST Glomerular Filtration Rate 55 mL/min (>60); Est Glom Filt Rate - Afr Amer 66 mL/min (>60); Estimated Creatinine Clearance 57.86 ml/min; Globulin 4.1 g/dL (2.2-4.2); Glucose 96 mg/dL (74-106); Lipase 26 U/L (13-75); Protein, Total 7.9 g/dL (6.4-8.2); Sodium Level 140 mmol/L (136-145)
[2024-08-03 16:18] LABS: Color, Urine Yellow (Yellow); Glucose, Dipstick Normal (Normal); Ketone-Dipstick Negative (Negative); Leukocyte Esterase-Dipstick 25 /ul (Negative); Nitrite-Dipstick Negative (Negative); Occult Blood-Urine Negative /ul (Negative); Protein-Dipstick 30 mg/dl (Negative); Urine Bilirubin Dipstick Negative (Negative); Urine Clarity Clear (Clear); Urine Urobilinogen 1 mg/dl (Normal)
[2024-08-03 16:40] LABS: Red Blood Cells-Urine 0-5 SEEN /hpf (0-5); Squamous Epithelial Cells - UA 0-5 SEEN /hpf (5-10); White Blood Cells 25-50 SEEN /hpf (0-5)
[2024-08-03 16:41] LABS: Bacteria 3+ /hpf (None Seen); Fine Granular Cast- Urine 0-5 SEEN /lpf (0-5); Hyaline Cast 0-5 SEEN /lpf (0-5); Mucous, Urine 2+ /hpf (<or=2+)
[2024-08-03 17:15] VITALS: PULSE 77; RESP 18; O2SAT 96
[2024-08-03] MEDS: Cefdinir 300 MG Capsule PO (18:13)
[2024-08-03] MEDS: metroNIDAZOLE 500 MG Tablet PO (18:14)
[2024-08-03 18:19] VITALS: BP 141/125; PULSE 82; RESP 18; O2SAT 96
== END 2024-08-03 18:26 | disposition home or self-care (01) ==
PROVIDERS: Emergency Provider Emergency Medicine; Referring Provider Emergency Medicine; Visit Provider Emergency Medicine
DX: K57.32 Diverticulitis of large intestine without perforation or abscess without bleeding (principal); F17.210 Nicotine dependence, cigarettes, uncomplicated
CPT/HCPCS: 74177; 80053; 81001; 83690; 85025; 96374; 99283; Q9967; A4216